=== PATIENT | male | born 1970 | race Caucasian/White ===

== ENCOUNTER → 2017-10-31 | Outpatient (CLI) | payer MEDICARE, OTHER ==
--- NOTE | 2017-10-31 08:58 | CT ---
EXAMINATION TYPE: CT brain wo con DATE OF EXAM: 10/31/2017 COMPARISON: NONE INDICATION: Syncope, Seizures DLP: 1917.3 mGycm, Automated exposure control for dose reduction was used. CONTRAST: None CT of the brain is performed utilizing 3 mm thick sections through the posterior fossa and 3 mm thick sections through the remaining calvarium. Study is performed within 24 hours of arrival to the hosp [facility]. There is some beam hardening artifact through the posterior fossa. No abnormal hyperdensity is present to suggest an acute intracranial hemorrhage. No mass lesion is evident. Physiologic basal ganglion calcification is present. No acute infarcts are evident. Some mild periventricular white matter ischemic type changes are not e xcluded. Ventricles and sulci are appropriate for the patient age. Paranasal sinuses and mastoid air cells within the [id number] are clear. IMPRESSIONS: 1. There may be some minimal periventricular white matter ischemic type changes present. 2. No acute intracranial process.
--- NOTE | 2017-10-31 09:36 | US ---
EXAMINATION TYPE: US carotid duplex BILAT DATE OF EXAM: 10/31/2017 COMPARISON: NONE CLINICAL HISTORY: R55 syncope G40.909 seizures. Syncope Pt mentally challenged (Down's Syndrome), very difficult, limited exam EXAM MEASUREMENTS: RIGHT: Peak Systolic Velocity (PSV) cm/sec ----- Right CCA: 60.3 ----- Right ICA: 26.3 ----- Right ECA: 61.9 ICA/CCA ratio: 0.4 RIGHT: End Diastole cm/sec ----- Right CCA: 5.4 ----- Right ICA: 11.3 ----- Right ECA: 7.8 LEFT: Peak Systolic Velocity (PSV) cm/sec ----- Left CCA: 64.7 ----- Left ICA: 32.7 ----- Left ECA: 57.0 ICA/CCA ratio: 0.5 LEFT: End Diastole cm/sec ----- Left CCA: 11.8 ----- Left ICA: 12.7 ----- Left ECA: 5.4 VERTEBRALS (direction of flow): Right Vertebral: Unable to visualize Left Vertebral: Unable to visualize Limited visualization shows no significant stenosis bilaterally, low velocities bilateral ICA's, ly mph nodes visualized left lateral neck IMPRESSION: 1. No sonographic evidence of hemodynamically significant stenosis within either carotid arterial sys tem. 2. Overall diminished peak systolic velocities are suggestive of hypotension or diminished cardiac ou tput. 3. Nonvisualization of the vertebral arteries due to the above limitations.
--- NOTE | 2017-10-31 11:34 | ECHOF ---
Referral Reason:R55 syncope/G40.909 seizures MEASUREMENTS -------- HEIGHT: 152.4 cm WEIGHT: 59.4 kg BP: IVSd: 0.7 cm (0.6 - 1.1) LVIDd: 2.6 cm (3.9 - 5.3) LVPWd: 0.7 cm (0.6 - 1.1) IVSs: 0.9 cm LVIDs: 1.7 cm LVPWs: 1.2 cm Ao Diam: 2.6 cm (2.0 - 3.7) AV Cusp: 1.5 cm (1.5 - 2.6) LA Diam: 2.1 cm (2.7 - 3.8) MV EXCURSION: 19.805 mm (> 18.000) MV EF SLOPE: 123 mm/s (70 - 150) MV E Ryder: 0.64 m/s MV DecT: 219 ms MV A Ryder: 0.63 m/s MV E/A Ratio: 1.02 RAP: 5.00 mmHg RVSP: 9.20 mmHg FINDINGS -------- Sinus rhythm. This was a technically difficult study with suboptimal views. This was a technically difficult stud y with suboptimal apical views. The left ventricular size is normal. Left ventricular wall thickness is normal. Overall left vent ricular systolic function is low-normal with, an EF between 50 - 55 %. The right ventricle is normal in size and function. The left atrium is normal in size. The right atrium is normal in size. The aortic valve is trileaflet, and appears structurally normal. No aortic stenosis or regurgitation. There is trace mitral regurgitation. Trace tricuspid regurgitation present. The right ventricular systolic pressure, as measured by Dopp ler, is 9.20mmHg. Pulmonic valve appears structurally normal. The aortic root, ascending aorta and aortic arch are normal. Normal inferior vena cava with normal inspiratory collapse consistent with estimated right atrial pre ssure of 5 mmHg. The pericardium is normal. CONCLUSIONS -------- 1. Sinus rhythm. 2. This was a technically difficult study with suboptimal views. 3. This was a technically difficult study with suboptimal apical views. 4. The left ventricular size is normal. 5. Left ventricular wall thickness is normal. 6. Overall left ventricular systolic function is low-normal with, an EF between 50 - 55 %. 7. The right ventricle is normal in size and function. 8. The left atrium is normal in size. 9. The right atrium is normal in size. 10. The aortic valve is trileaflet, and appears structurally normal. No aortic stenosis or regurgitat ion. 11. There is trace mitral regurgitation. 12. Trace tricuspid regurgitation present. 13. The right ventricular systolic pressure, as measured by Doppler, is 9.20mmHg. 14. Pulmonic valve appears structurally normal. 15. The aortic root, ascending aorta and aortic arch are normal. 16. Normal inferior vena cava with normal inspiratory collapse consistent with estimated right atrial pressure of 5 mmHg. 17. The pericardium is normal. FOOD SERVICE ATTENDANT: Shena Rajan RDCS
--- NOTE | 2017-10-31 17:20 | EEG ---
ELECTROENCEPHALOGRAM REPORT DATE OF EE10/31/2017 ELECTROENCEPHALOGRAPHIC EXAMINATION REPORT: INDICATION FOR EXAMINATION: This patient is a 47-year-old male with history of Down syndrome and OCD. Patient currently residing in a assisted with episodes of falls and questionable seizure activity. AGE: 47. EEG FINDINGS: A routine 21-channel awake digital EEG recording was accomplished utilizing the 10-20 international system with bipolar and referential montages. The background activity in the most alert resting state consists of a low to medium amplitude, fairly well- developed well-sustained 6-7 Hz activity over the posterior head region. This posterior rhythm attenuates to eye opening. There is a small amount of low amplitude 18-20 Hz beta activity seen maximally over the anterior head regions. Muscle and movement artifact was observed on several occasions during the tracing. Hyperventilation failed to add any additional information to the tracing. No further activation was noted. Photic stimulation at flash frequencies of 2-30 Hz produced a minimal occipital driving response. The main feature of this tracing is the occurrence on several occasions of small bitemporal sharp wave discharges lasting 4-5 seconds in duration. This finding persists throughout the tracing. These small bitemporal sharp waves are bilateral in location. No clinical correlation was seen during these episodes. IMPRESSION: This EEG is abnormal due to the occurrence of small bitemporal sharp wave discharges occurring bilaterally. This finding suggests possibility of a seizure disorder of deep level origin. Clinical correlation is strongly recommended. VETO / TIMMY: [id number] /
== END | disposition home or self-care (01) ==
LOC: RADCTMAIN 07:12
PROVIDERS: ATTEND Family Medicine
DX: R94.01 Abnormal electroencephalogram [EEG] (principal); G40.909 Epilepsy, unspecified, not intractable, without status epilepticus; R55 Syncope and collapse
CPT/HCPCS: 70450; 93306; 93880; 95816

== ENCOUNTER → 2017-12-22 | Outpatient (CLI) | payer MEDICARE, OTHER ==
[2017-12-22 08:44] LABS: Basophils # (A) 0.1 k/uL (0-0.2); Basophils % (A) 1 %; Eosinophils # (A) 0.1 k/uL (0-0.7); Eosinophils % (A) 1 %; HCT 52.5 % (39.0-53.0); HGB 17.3 gm/dL (13.0-17.5); Lymphocytes # (A) 1.1 k/uL (1.0-4.8); Lymphocytes % (A) 16 %; MCH 33.2 pg (25.0-35.0); MCV 100.6 fL (80.0-100.0); Macrocytosis Slight; Mean Platelet Volume 8.5; Monocytes # (A) 0.6 k/uL (0-1.0); Monocytes % (A) 9 %; Neutrophils # (A) 4.9 k/uL (1.3-7.7); Neutrophils % (A) 70 %; Platelet Count 235 k/uL (150-450); RBC 5.22 m/uL (4.30-5.90); RDW 13.4 % (11.5-15.5); WBC 6.9 k/uL (3.8-10.6)
[2017-12-22 09:00] LABS: Valproic Acid (Depakene) 60.7 ug/mL
== END | disposition home or self-care (01) ==
LOC: LABWHC1 08:09
PROVIDERS: ATTEND Psychiatry & Neurology Neurology
DX: G40.909 Epilepsy, unspecified, not intractable, without status epilepticus (principal)
CPT/HCPCS: 36415; 80164; 84450; 84460; 85025

== ENCOUNTER → 2018-10-24 | Outpatient (CLI) | payer MEDICARE, OTHER ==
--- NOTE | 2018-10-24 11:35 | XR ---
EXAMINATION TYPE: XR abdomen 1V DATE OF EXAM: 10/24/2018 Comparison: None Clinical History: 48-year-old male change in bowel habits Findings: No evidence for free intraperitoneal air. Air is seen throughout the colon with moderate stool in th e right side of the abdomen. Prominent gassy small bowel loops in the left side of the abdomen. No ai r-fluid levels. Impression: Gassy small bowel loops in the left side of the abdomen could be transient or could reflect an ileus. Nonobstructive bowel gas pattern. No free air.
== END ==
LOC: RADXRMAIN 09:58
PROVIDERS: ATTEND Family Medicine
DX: R19.4 Change in bowel habit (principal)
CPT/HCPCS: 74018

== ENCOUNTER → 2018-11-01 | Outpatient (CLI) | payer MEDICARE, OTHER ==
[2018-11-01 09:03] LABS: Basophils # (A) 0.1 k/uL (0-0.2); Basophils % (A) 2 %; Eosinophils # (A) 0.1 k/uL (0-0.7); Eosinophils % (A) 1 %; HCT 49.4 % (39.0-53.0); Lymphocytes # (A) 1.2 k/uL (1.0-4.8); Lymphocytes % (A) 31 %; MCH 33.1 pg (25.0-35.0); MCHC 32.4 g/dL (31.0-37.0); MCV 102.2 fL (80.0-100.0); Macrocytosis Slight; Mean Platelet Volume 9.6; Monocytes # (A) 0.4 k/uL (0-1.0); Monocytes % (A) 11 %; Neutrophils # (A) 2.1 k/uL (1.3-7.7); Neutrophils % (A) 53 %; Platelet Count 202 k/uL (150-450); RBC 4.83 m/uL (4.30-5.90); RDW 14.5 % (11.5-15.5)
[2018-11-01 16:50] LABS: Albumin/Globulin Ratio 1.29 (1.60-3.17); Anion Gap 10.6 mmol/L (4.00-12.00); Bilirubin, Conjugated 0.2 mg/dL (0.20-0.40); Bilirubin,Unconjugated 0.4 mg/dL; Carbon Dioxide 28.4 mmol/L (21.6-31.8); Globulin 3.1 g/dL (1.6-3.3); LDL Cholesterol,Calculated 135.4 mg/dL (0.0-131.0); Potassium 4.5 mmol/L (3.5-5.5); Total Bilirubin 0.6 mg/dL (0.2-1.2); Total Protein 7.1 g/dL (6.2-8.2); VLDL Calculation 25.6 mg/dL (5.00-40.00)
[2018-11-01 16:56] LABS: T4, Free (Free Thyroxine) 1.1 ng/dL (0.80-1.80)
[2018-11-01 18:19] LABS: Hemoglobin A1C 4.9 % (4.0-6.0)
== END | disposition home or self-care (01) ==
LOC: LABWHC1 07:53
PROVIDERS: ATTEND Nurse Practitioner Family
DX: Z51.81 Encounter for therapeutic drug level monitoring (principal); Z79.899 Other long term (current) drug therapy
CPT/HCPCS: 36415; 80051; 80061; 80076; 80164; 82947; 83036; 84439; 84443; 85025

== ENCOUNTER → 2018-12-13 | Outpatient (CLI) | payer MEDICARE, OTHER | LOC: LABWHC1 11:03 | PROVIDERS: ATTEND Nurse Practitioner Family | DX: Z51.81 Encounter for therapeutic drug level monitoring (principal); Z79.899 Other long term (current) drug therapy | CPT/HCPCS: 36415; 80164 ==

== ENCOUNTER → 2018-12-31 | Outpatient (CLI) | payer MEDICARE, OTHER ==
--- NOTE | 2018-12-31 10:22 | CT ---
EXAMINATION TYPE: CT abdomen pelvis w con DATE OF EXAM: 12/31/2018 COMPARISON: None HISTORY: Diverticulitis Automated exposure control for dose reduction was used. CONTRAST: CT scan of the abdomen pelvis is performed with IV Contrast, patient injected with 100 mL of Isovue 3 00. FINDINGS- LUNG BASES-diffuse groundglass changes are seen involving the lungs. LIVER/GB- No gross abnormality is appreciated. PANCREAS- No gross abnormality is seen. SPLEEN- No gross abnormality is seen. ADRENALS- No gross abnormality is seen. KIDNEYS/BLADDER- no hydronephrosis nephrolithiasis or renal mass. BOWEL-the bowel gas pattern nonspecific with extensive retained fecal debris. No diagnostic evidence of diverticulitis. Correlate for constipation. Small hiatal hernia. LYMPH NODES- No greater than 1cm abdominal or pelvic lymph nodes areappreciated. OSSEOUS STRUCTURES- No significant abnormality is seen. OTHER- bladder demonstrates circumferential wall thickening correlate for cystitis. Small amount of fluid is seen in the inguinal canal bilaterally. IMPRESSION- 1. Correlate for cystitis. There is circumferential bladder wall thickening. Correlate with urinalysi s. Otherwise consider mucosal lesion. 2. No diagnostic evidence of diverticulitis. Retained fecal debris throughout the colon suggests cons tipation. 3. Groundglass changes involving the lungs are suggestive of alveolitis correlate clinically.
== END ==
LOC: RADCTMAIN 08:39
PROVIDERS: ATTEND Surgery Plastic and Reconstructive Surgery
DX: N32.89 Other specified disorders of bladder (principal); R19.7 Diarrhea, unspecified
CPT/HCPCS: 74177; Q9967

== ENCOUNTER 2019-01-06 07:44 | Emergency (ER) | payer MEDICARE, OTHER ==
[2019-01-06 07:50] VITALS: BP 105/76; PULSE 92; RESP 16; TEMP 97.8
--- NOTE | 2019-01-06 08:17 | ED ---
General Adult HPI - General Chief complaint: Fall Stated complaint: Fall, hit head Time Seen by Provider: 01/06/19 07:45 Source: patient, RN notes reviewed Mode of arrival: wheelchair Limitations: no limitations - History of Present Illness Initial comments: This is a 48-year-old male who is a Down syndrome patient. Patient slipped in the bathroom and fell back and hit his head. Patient is unable to give us any accurate history he says yes to any question asked. According to staff patient did not lose consciousness and does not appear to be acting different however he does have a hematoma in the left temporal region of his scalp. Patient appears to be moving his neck without problem but again he is unable to tell you of his neck hurts. Patient is moving all 4 extremities and according to staff was able to ambulate without problem. - Related Data Home Medications Medication Instructions Recorded Confirmed Cholecalciferol [Vitamin D3] 3 tab PO DAILY 07/05/18 Divalproex ER [Depakote ER] 500 mg PO HS 07/05/18 Fluticasone Nasal [place] [Flonase 1 spray EA NOSTRIL DAILY PRN 07/05/18 Nasal [place]] Hydrocortisone Oint 1 applic TOPICAL DAILY PRN 07/05/18 [Hydrocortisone 2.5% Oint] Levothyroxine Sodium [Synthroid] 75 mcg PO HS 07/05/18 Loratadine 10 mg PO DAILY PRN 07/05/18 QUEtiapine [SEROquel] 50 mg PO 1800 07/05/18 Selenium Sulfate 2.5% Lotion 1 dose TOPICAL DAILY 07/05/18 Triamcinolone 0.1% Ointment 1 applic TOPICAL DAILY PRN 07/05/18 [Kenalog 0.1% Ointment] Venlafaxine HCl [Effexor XR] 150 mg PO DAILY 07/05/18 Venlafaxine HCl [Effexor] 75 mg PO DAILY 07/05/18 clonazePAM [KlonoPIN] 0.5 mg PO BID 07/05/18 clonazePAM [KlonoPIN] 0.5 mg PO BID PRN 07/05/18 Allergies Allergy/AdvReac Type Severity Reaction Status Date / Time furosemide [From Lasix] Allergy Unknown Verified 01/06/19 07:49 latex Allergy Unknown Verified 01/06/19 07:49 Review of Systems ROS Statement: Those systems with pertinent positive or pertinent negative responses have been documented in the HPI. ROS Other: All systems not noted in ROS Statement are negative. Past Medical History Past Medical History: Thyroid Disorder Additional Past Medical History / Comment(s): developmental disability, ocd, dementia, downs syndrome History of Any Multi-Drug Resistant Organisms: None Reported Past Surgical History: No Surgical Hx Reported Additional Past Surgical History / Comment(s): tooth extraction Past Anesthesia/Blood Transfusion Reactions: No Reported Reaction Smoking Status: Never smoker Past Alcohol Use History: None Reported Past Drug Use History: None Reported General Exam - General Exam Comments Initial Comments: GENERAL: Patient is well-developed and well-nourished. Patient is nontoxic and well- hydrated and is in no acute distress. ENT: Neck is soft and supple. No significant lymphadenopathy is noted. Oropharynx is clear. Moist mucous membranes. Neck has full range of motion without eliciting any pain. Patient has a hematoma on the left temporal region measuring about 3 cm in diameter EYES: The sclera were anicteric and conjunctiva were pink and moist. Extraocular movements were intact and pupils were equal round and reactive to light. Eyelids were unremarkable. PULMONARY: Unlabored respirations. Good breath sounds bilaterally. No audible rales rhonchi or wheezing was noted. CARDIOVASCULAR: There is a regular rate and rhythm without any murmurs gallops or rubs. ABDOMEN: Soft and nontender with normal bowel sounds. SKIN: Skin is clear with no lesions or rashes and otherwise unremarkable. NEUROLOGIC: Patient is alert and oriented to his baseline. Cranial nerves II through XII are grossly intact. Motor and sensory are also intact. Normal speech, volume and content. Symmetrical smile. MUSCULOSKELETAL: Normal extremities with adequate strength and full range of motion. No lower extremity swelling or edema. No calf tenderness. LYMPHATICS: No significant lymphadenopathy is noted PSYCHIATRIC: Normal psychiatric evaluation. Limitations: no limitations Course Vital Signs 01/06/19 07:46 Temperature 97.8 F Pulse Rate 92 Respiratory 16 Rate Blood Pressure 105/76 O2 Sat by Pulse 97 Oximetry Medical Decision Making - Medical Decision Making CT of the brain and C-spine showed no acute abnormality. Patient is acting at his baseline according to staff. Disposition Clinical Impression: Scalp hematoma Disposition: HOME SELF-CARE Condition: Good Instructions (If sedation given, give patient instructions): Hematoma (ED), How to Use and Care for Your PEG Tube (ED), Head Injury (ED) Is patient prescribed a controlled substance at d/c from ED?: No Referrals: Moustapha Madrid DO [Primary Care Provider] - 1-2 days Time of Disposition: 08:58
--- NOTE | 2019-01-06 08:36 | CT ---
EXAMINATION TYPE: CT brain silvia kidd DATE OF EXAM: 01/06/2019 COMPARISON: NONE HISTORY: Fall, Hit head CT DLP: 1572 mGycm Automated exposure control for dose reduction was used. TECHNIQUE: CT scan of the head and cervical spine are performed without contrast. FINDINGS: BRAIN: Central structures are midline. There is no evidence of hydrocephalus. There is physiologic ca lcification of the basal ganglia. There is no mass effect, midline shift or intracranial blood. Visualized portions of the paranasal sinuses and mastoids are clear. The bony calvarium is intact. IMPRESSION: NO ACUTE INTRACRANIAL ABNORMALITY. CERVICAL SPINE: There is some groundglass opacity in the visualized portions of the lungs. This may r epresent alveolitis, atypical pneumonia or congestive heart failure. Prevertebral soft tissues are ot herwise normal. There is a mild reversal of the normal cervical lordosis. There is a grade 1 antegrade listhesis of C 3 on C4. Alignment is otherwise normal. Atlantoaxial relationships are normal. There is disc space loss and hypertrophic spondylosis, most marked at C4-5 and C5-C6 but also present to lesser extent C6-7. There is uncovertebral joint disease present at these levels. There is facet arthropathy present on the left at C2-3 and bilaterally at C3-4. No definite protrusion is seen. No f ractures are identified. IMPRESSION: 1. NO ACUTE OSSEOUS LESION. 2. DEGENERATIVE CHANGE.
== END 2019-01-06 09:28 | disposition home or self-care (01) ==
LOC: EC 07:44
DX: S00.83XA Contusion of other part of head, initial encounter (principal); E07.9 Disorder of thyroid, unspecified; F42.9 Obsessive-compulsive disorder, unspecified; Z79.890 Hormone replacement therapy; Z79.899 Other long term (current) drug therapy; Z88.8 Allergy status to other drugs, medicaments and biological substances; Z91.040 Latex allergy status; W01.10XA Fall on same level from slipping, tripping and stumbling with subsequent striking against unspecified object, initial encounter; Y93.F1 Activity, caregiving, bathing; Y92.002 Bathroom of unspecified non-institutional (private) residence as the place of occurrence of the external cause
CPT/HCPCS: 70450; 72125; 99283

== ENCOUNTER 2019-02-15 06:34 | Day surgery (SDC) | payer MEDICARE, OTHER ==
[2019-02-13 11:02] VITALS: BMI 26.9
[~2019-02-15 06:34] MED LIST: KETAMINE 50 MG/ML 10 ML VIAL IM PRN; LACTATED RINGERS 1,000 ML IV SCH
[2019-02-15 07:00] VITALS: TEMP 97.8
--- NOTE | 2019-02-15 07:25 | P.GSHP ---
History of Present Illness H&P Date: 02/15/19 CHIEF COMPLAINT: Colon screen HISTORY OF PRESENT ILLNESS: The patient is a 48-year-old male who presents for colon screen and has special needs. Lower endoscopy was offered for further evaluation and management. PAST MEDICAL HISTORY: Please see list. PAST SURGICAL HISTORY: Please see list. MEDICATIONS: Please see list. ALLERGIES: Please see list. SOCIAL HISTORY: No illicit drug use FAMILY HISTORY: No reports of Crohn disease or ulcerative colitis. REVIEW OF ORGAN SYSTEMS: CONSTITUTIONAL: No reports of fevers or chills. PHYSICAL EXAM: VITAL SIGNS: Stable GENERAL: Well-developed pleasant in no acute distress. HEENT: No scleral icterus. Extraocular movements grossly intact. Moist buccal mucosa. NECK: Supple without lymphadenopathy. CHEST: Unlabored respirations. Equal bilateral excursions. CARDIOVASCULAR: Regular rate and rhythm. Distal 2+ pulses. ABDOMEN: Soft, nontender, nondistended. MUSCULOSKELETAL: No clubbing, cyanosis, or edema. PSYCH: Cognitive device ASSESSMENT: 1. Colon screen. 2. Cognitive impairment PLAN: 1. Recommend proceeding with a lower endoscopy Past Medical History Past Medical History: Dementia, Skin Disorder, Thyroid Disorder Additional Past Medical History / Comment(s): developmental disability, ocd, dementia, downs syndrome, syncope, ezcema,psoriasis History of Any Multi-Drug Resistant Organisms: None Reported Past Surgical History: No Surgical Hx Reported Additional Past Surgical History / Comment(s): tooth extraction, cyst removed from tailbone Past Anesthesia/Blood Transfusion Reactions: No Reported Reaction Smoking Status: Never smoker - Past Family History Mother Family Medical History: Unable to Obtain Medications and Allergies Home Medications Medication Instructions Recorded Confirmed Type Cholecalciferol [Vitamin D3] 3 tab PO DAILY 07/05/18 02/15/19 History Fluticasone Nasal [place] [Flonase 1 spray EA NOSTRIL DAILY PRN 07/05/18 02/15/19 History Nasal [place]] Hydrocortisone Oint 1 applic TOPICAL DAILY PRN 07/05/18 02/15/19 History [Hydrocortisone 2.5% Oint] Levothyroxine Sodium [Synthroid] 75 mcg PO HS 07/05/18 02/15/19 History Loratadine 10 mg PO DAILY PRN 07/05/18 02/15/19 History Selenium Sulfate 2.5% Lotion 1 dose TOPICAL DAILY PRN 07/05/18 02/15/19 History Triamcinolone 0.1% Ointment 1 applic TOPICAL DAILY PRN 07/05/18 02/15/19 History [Kenalog 0.1% Ointment] Venlafaxine HCl [Effexor] 225 mg PO DAILY@0600 07/05/18 02/15/19 History clonazePAM [KlonoPIN] 0.5 mg PO BID 07/05/18 02/15/19 History Divalproex ER [Depakote ER] 1,250 mg PO HS 01/06/19 02/15/19 History Midodrine [ProAmatine] 10 mg PO TID 01/06/19 02/15/19 History QUEtiapine FUMARATE [SEROquel] 25 mg PO HS 01/06/19 02/15/19 History Polyethylene Glycol 3350 [Miralax] 17 gm PO DAILY PRN 02/13/19 02/15/19 History clonazePAM [KlonoPIN] 0.5 mg PO BID PRN 02/13/19 02/15/19 History Allergies Allergy/AdvReac Type Severity Reaction Status Date / Time furosemide [From Lasix] Allergy Unknown Verified 02/15/19 06:50 latex Allergy Unknown Verified 02/15/19 06:50 Surgical - Exam Vital Signs Temp Pulse Resp BP Pulse Ox 97.8 F 89 16 115/83 97 02/15/19 06:58 02/15/19 06:58 02/15/19 06:58 02/15/19 06:58 02/15/19 06:58
[2019-02-15] MEDS ORDERED: PROPOFOL 10 MG/ML 20 ML VIAL IV ONE (07:41)
[2019-02-15] MEDS ORDERED: LIDOCAINE 1% INJ 10MG/ML (20 ML MDV) ONE (07:41)
--- NOTE | 2019-02-15 08:05 | P.PCN ---
Date of Procedure: 02/15/19 Description of Procedure: PREOPERATIVE DIAGNOSIS: Colonoscopy screening. POSTOPERATIVE DIAGNOSIS: Colonoscopy screening. Diverticulosis, scattered. Poor prep OPERATION: Colonoscopy to the ascending colon SURGEON: Karen Mathews MD. ANESTHESIA: MAC. INDICATIONS: The patient is a 48-year-old male who presents for his first colonoscopy screening. Benefits and risks were described and informed consent was obtained. DESCRIPTION OF PROCEDURE: The patient had undergone Suprep. He had been brought into the operating room and laid in the left lateral decubitus position. After adequate intravenous sedation, the rectum was examined with 2% lidocaine jelly. No external hemorrhoids were encountered. The rectal tone was within normal limits. No lesions were palpated in the rectal vault. An Olympus colonoscope was advanced until the ileocecal valve and appendiceal orifice were clearly viewed. The prep was poor prohibiting complete view of all the mucosal folds despite irrigation. Scattered diverticulosis was encountered. No colonic polyps were found. No evidence of focal colitis was found. Retroflexion of the scope demonstrated grade 1 internal hemorrhoids without active bleeding or inflammation. The colon was desufflated. The patient had tolerated the procedure well. Withdrawal time was over 6 minutes. FINDINGS: Aronchick preparation quality scale 3 (1-5) Internal hemorrhoids, grade 1 No external prolapsed hemorrhoids. No arteriovenous malformations. No large adenomatous polyps, however limited secondary to poor prep No focal colitis. RECOMMENDATIONS: Lower endoscopy in 2 years, 2020 Plan - Discharge Summary Discharge Rx Participant: No New Discharge Prescriptions: No Action Venlafaxine HCl [Effexor] 225 mg PO DAILY@0600 Triamcinolone 0.1% Ointment [Kenalog 0.1% Ointment] 1 applic TOPICAL DAILY PRN PRN Reason: Dry Skin Loratadine 10 mg PO DAILY PRN PRN Reason: allergies Levothyroxine Sodium [Synthroid] 75 mcg PO HS Hydrocortisone Oint [Hydrocortisone 2.5% Oint] 1 applic TOPICAL DAILY PRN PRN Reason: Dry Skin Fluticasone Nasal [employer] [Flonase Nasal [employer]] 1 spray EA NOSTRIL DAILY PRN PRN Reason: sinus congestion clonazePAM [KlonoPIN] 0.5 mg PO BID Selenium Sulfate 2.5% Lotion 1 dose TOPICAL DAILY PRN PRN Reason: Dry Skin Cholecalciferol [Vitamin D3] 3 tab PO DAILY Midodrine [ProAmatine] 10 mg PO TID Divalproex ER [Depakote ER] 1,250 mg PO HS QUEtiapine FUMARATE [SEROquel] 25 mg PO HS Polyethylene Glycol 3350 [Miralax] 17 gm PO DAILY PRN PRN Reason: Constipation clonazePAM [KlonoPIN] 0.5 mg PO BID PRN PRN Reason: Agitation Discharge Medication List Cholecalciferol [Vitamin D3] 3 tab PO DAILY 07/05/18 [History] Fluticasone Nasal [employer] [Flonase Nasal [employer]] 1 spray EA NOSTRIL DAILY PRN [History] Hydrocortisone Oint [Hydrocortisone 2.5% Oint] 1 applic TOPICAL DAILY PRN 07/05/18 [History] Levothyroxine Sodium [Synthroid] 75 mcg PO HS 07/05/18 [History] Loratadine 10 mg PO DAILY PRN 07/05/18 [History] Selenium Sulfate 2.5% Lotion 1 dose TOPICAL DAILY PRN 07/05/18 [History] Triamcinolone 0.1% Ointment [Kenalog 0.1% Ointment] 1 applic TOPICAL DAILY PRN 07/05/18 [History] Venlafaxine HCl [Effexor] 225 mg PO DAILY@0600 07/05/18 [History] clonazePAM [KlonoPIN] 0.5 mg PO BID 07/05/18 [History] Divalproex ER [Depakote ER] 1,250 mg PO HS 01/06/19 [History] Midodrine [ProAmatine] 10 mg PO TID 01/06/19 [History] QUEtiapine FUMARATE [SEROquel] 25 mg PO HS 01/06/19 [History] Polyethylene Glycol 3350 [Miralax] 17 gm PO DAILY PRN 02/13/19 [History] clonazePAM [KlonoPIN] 0.5 mg PO BID PRN 02/13/19 [History]
[2019-02-15 09:12] VITALS: BP 108/73; PULSE 71; RESP 17
== END 2019-02-15 10:27 | disposition home or self-care (01) ==
LOC: ORWHC2ENDO 06:34
PROVIDERS: ATTEND Surgery Plastic and Reconstructive Surgery
DX: Z12.11 Encounter for screening for malignant neoplasm of colon (principal); K57.30 Diverticulosis of large intestine without perforation or abscess without bleeding; K64.8 Other hemorrhoids; Q90.9 Down syndrome, unspecified; F42.9 Obsessive-compulsive disorder, unspecified; F03.90 Unspecified dementia, unspecified severity, without behavioral disturbance, psychotic disturbance, mood disturbance, and anxiety; E07.9 Disorder of thyroid, unspecified; L30.9 Dermatitis, unspecified; L40.9 Psoriasis, unspecified; Z79.890 Hormone replacement therapy; Z79.899 Other long term (current) drug therapy; Z88.8 Allergy status to other drugs, medicaments and biological substances; Z91.040 Latex allergy status
CPT/HCPCS: G0121; J2001; J2704; 45378

== ENCOUNTER → 2019-07-04 | Outpatient (CLI) | payer MEDICARE, OTHER ==
[2019-07-04 07:54] LABS: Basophils # (A) 0.1 k/uL (0-0.2); Basophils % (A) 1 %; Eosinophils # (A) 0.1 k/uL (0-0.7); Eosinophils % (A) 2 %; HCT 49.9 % (39.0-53.0); HGB 16.3 gm/dL (13.0-17.5); Lymphocytes # (A) 1.4 k/uL (1.0-4.8); Lymphocytes % (A) 28 %; MCH 34.6 pg (25.0-35.0); MCHC 32.6 g/dL (31.0-37.0); MCV 106.3 fL (80.0-100.0); Macrocytosis Moderate; Mean Platelet Volume 7.4; Monocytes # (A) 0.6 k/uL (0-1.0); Monocytes % (A) 11 %; Neutrophils # (A) 2.8 k/uL (1.3-7.7); Neutrophils % (A) 55 %; Platelet Count 288 k/uL (150-450); RDW 14.6 % (11.5-15.5); WBC 5.2 k/uL (3.8-10.6)
[2019-07-04 14:19] LABS: ALT 43 U/L (10-49); AST 42 U/L (14-35); Albumin/Globulin Ratio 1.14 (1.60-3.17); Alkaline Phosphatase 82 U/L (41-126); Bilirubin, Conjugated <0.20 mg/dL (0.20-0.40); Cholesterol 225 mg/dL (0-200); Globulin 3.6 g/dL (1.6-3.3); Glucose 90 mg/dL (70-110); LDL Cholesterol,Calculated 149.2 mg/dL (0.0-131.0); Total Bilirubin 0.4 mg/dL (0.2-1.2); Total Protein 7.7 g/dL (6.2-8.2)
== END ==
LOC: LABWHC1 07:26
PROVIDERS: ATTEND Nurse Practitioner Family
DX: Z51.81 Encounter for therapeutic drug level monitoring (principal); Z79.899 Other long term (current) drug therapy
CPT/HCPCS: 36415; 80061; 80076; 80164; 82947; 83036; 84439; 84443; 85025

== ENCOUNTER → 2019-08-26 | Outpatient (CLI) | payer MEDICARE, OTHER ==
[2019-08-26 15:44] LABS: Valproic Acid (Depakene) 88.8 ug/mL (50.0-100.0)
[2019-08-26 15:55] LABS: T4, Free (Free Thyroxine) 1.3 ng/dL (0.80-1.80)
== END | disposition home or self-care (01) ==
LOC: LABWHC1 08:51
PROVIDERS: ATTEND Nurse Practitioner Family
DX: Z12.5 Encounter for screening for malignant neoplasm of prostate (principal); Z79.899 Other long term (current) drug therapy
CPT/HCPCS: 36415; 80164; 84153; 84439; 84443

== ENCOUNTER → 2019-09-11 | Outpatient (CLI) | payer MEDICARE, OTHER | END | disposition home or self-care (01) | LOC: LABWHC1 08:49 | PROVIDERS: ATTEND Nurse Practitioner Family | DX: Z51.81 Encounter for therapeutic drug level monitoring (principal); Z79.899 Other long term (current) drug therapy | CPT/HCPCS: 36415; 80164 ==

== ENCOUNTER 2019-12-17 07:44 | Emergency (ER) | payer MEDICARE, OTHER ==
[2019-12-17] MEDS ORDERED: SODIUM CHLORIDE 0.9% 500 ML 500 ML IV ONE (07:47)
[2019-12-17 07:49] VITALS: RESP 18
--- NOTE | 2019-12-17 07:53 | ED ---
General Adult HPI - General Stated complaint: Altered Time Seen by Provider: 12/17/19 07:44 Source: EMS, RN notes reviewed, old records reviewed - History of Present Illness Initial comments: This is a 49-year-old male who resides at a custodial. He has a history of seizures. Patient is unable to give any history. Patient was brought in because he was unresponsive right after having taken a shower and when EMS got there he responded with sternal rub and then slowly came around to his baseline. EMS stated it appeared he was post ictal. Staff did state when he has a seizure he does act like this but this seemed a little longer than normal and they didn't notice any seizure activity. There've been no history of the p atient. He'll follow no history of any fever. Been no difficulty breathing or been no trauma that they know of. At this time no further history is available - Related Data Home Medications Medication Instructions Recorded Confirmed Cholecalciferol [Vitamin D3] 3 tab PO DAILY 07/05/18 02/15/19 Fluticasone Nasal [place] [Flonase 1 spray EA NOSTRIL DAILY PRN 07/05/18 02/15/19 Nasal [place]] Hydrocortisone Oint 1 applic TOPICAL DAILY PRN 07/05/18 02/15/19 [Hydrocortisone 2.5% Oint] Levothyroxine Sodium [Synthroid] 75 mcg PO HS 07/05/18 02/15/19 Loratadine 10 mg PO DAILY PRN 07/05/18 02/15/19 Selenium Sulfate 2.5% Lotion 1 dose TOPICAL DAILY PRN 07/05/18 02/15/19 Triamcinolone 0.1% Ointment 1 applic TOPICAL DAILY PRN 07/05/18 02/15/19 [Kenalog 0.1% Ointment] Venlafaxine HCl [Effexor] 225 mg PO DAILY@0600 07/05/18 02/15/19 clonazePAM [KlonoPIN] 0.5 mg PO BID 07/05/18 02/15/19 Divalproex ER [Depakote ER] 1,250 mg PO HS 01/06/19 02/15/19 Midodrine [ProAmatine] 10 mg PO TID 01/06/19 02/15/19 QUEtiapine FUMARATE [SEROquel] 25 mg PO HS 01/06/19 02/15/19 Polyethylene Glycol 3350 [Miralax] 17 gm PO DAILY PRN 02/13/19 02/15/19 clonazePAM [KlonoPIN] 0.5 mg PO BID PRN 02/13/19 02/15/19 Previous Rx's Medication Instructions Recorded Potassium Bicarb-Citric Acid 25 meq PO ONCE 5 Days #5 tablet.eff 12/17/19 [K-Lyte] Allergies Allergy/AdvReac Type Severity Reaction Status Date / Time furosemide [From Lasix] Allergy Unknown Verified 02/15/19 06:50 latex Allergy Unknown Verified 02/15/19 06:50 memantine [From Namenda] Allergy Unknown Verified 12/17/19 07:54 Review of Systems ROS Statement: Those systems with pertinent positive or pertinent negative responses have been documented in the HPI. ROS Other: All systems not noted in ROS Statement are negative. Past Medical History Past Medical History: Thyroid Disorder Additional Past Medical History / Comment(s): developmental disability, ocd, dementia, downs syndrome History of Any Multi-Drug Resistant Organisms: None Reported Past Surgical History: No Surgical Hx Reported Additional Past Surgical History / Comment(s): tooth extraction Past Anesthesia/Blood Transfusion Reactions: No Reported Reaction Smoking Status: Never smoker - Past Family History Mother Family Medical History: Unable to Obtain General Exam - General Exam Comments Initial Comments: GENERAL: Patient is well-developed and well-nourished. Patient is nontoxic and well- hydrated and is in no acute distress. ENT: Neck is soft and supple. No significant lymphadenopathy is noted. Oropharynx is clear. Moist mucous membranes. Neck has full range of motion without eliciting any pain. EYES: The sclera were anicteric and conjunctiva were pink and moist. Extraocular movements were intact and pupils were equal round and reactive to light. Eyelids were unremarkable. PULMONARY: Unlabored respirations. Good breath sounds bilaterally. No audible rales rhonchi or wheezing was noted. CARDIOVASCULAR: There is a regular rate and rhythm without any murmurs gallops or rubs. ABDOMEN: Soft and nontender with normal bowel sounds. SKIN: Skin is clear with no lesions or rashes and otherwise unremarkable. NEUROLOGIC: Patient is alert patient is not answering questions so I am unable to assess his orientation. Cranial nerves II through XII are grossly intact. Motor appears to be intact. Unable to assess speech because he is not talking to us and I don't have a baseline for what he is able to do baseline verbally MUSCULOSKELETAL: Normal extremities with adequate strength and full range of motion. No lower extremity swelling or edema. No calf tenderness. LYMPHATICS: No significant lymphadenopathy is noted PSYCHIATRIC: Unable to assess the patient Course Vital Signs 12/17/19 12/17/19 07:45 09:43 Temperature 97.6 F Pulse Rate 99 100 Respiratory 18 18 Rate Blood Pressure 138/75 123/80 O2 Sat by Pulse 95 Oximetry Medical Decision Making - Medical Decision Making EKG shows normal sinus rhythm at 90 bpm KS interval 1:30 QRS is 74 QT interval 370 QTC is 452. Patient's EKG shows no ST segment elevation or depression. - Lab Data Result diagrams: 12/17/19 08:10 12/17/19 08:10 Lab Results 12/17/19 12/17/19 12/17/19 Range/Units 07:53 08:10 08:10 WBC 7.0 (3.8-10.6) k/uL RBC 4.17 L (4.30-5.90) m/uL Hgb 14.3 (13.0-17.5) gm/dL Hct 44.3 (39.0-53.0) % MCV 106.3 H (80.0-100.0) fL MCH 34.4 (25.0-35.0) pg MCHC 32.4 (31.0-37.0) g/dL RDW 15.7 H (11.5-15.5) % Plt Count 272 (150-450) k/uL Neutrophils % 67 % Lymphocytes % 21 % Monocytes % 9 % Eosinophils % 1 % Basophils % 1 % Neutrophils # 4.7 (1.3-7.7) k/uL Lymphocytes # 1.5 (1.0-4.8) k/uL Monocytes # 0.6 (0-1.0) k/uL Eosinophils # 0.1 (0-0.7) k/uL Basophils # 0.1 (0-0.2) k/uL Macrocytosis Moderate PT 10.8 (9.0-12.0) sec INR 1.0 (<1.2) APTT 25.0 (22.0-30.0) sec Sodium (137-145) mmol/L Potassium (3.5-5.1) mmol/L Chloride (98-107) mmol/L Carbon Dioxide (22-30) mmol/L Anion Gap mmol/L BUN (9-20) mg/dL Creatinine (0.66-1.25) mg/dL Est GFR (CKD-EPI)AfAm (>60 ml/min/1.73 sqM) Est GFR (CKD-EPI)NonAf (>60 ml/min/1.73 sqM) Glucose (74-99) mg/dL POC Glucose (mg/dL) 85 (75-99) mg/dL POC Glu Client Care Specialist ID Esthela Garcia Calcium (8.4-10.2) mg/dL Total Bilirubin (0.2-1.3) mg/dL AST (17-59) U/L ALT (4-49) U/L Alkaline Phosphatase (38-126) U/L Troponin I (0.000-0.034) ng/mL Total Protein (6.3-8.2) g/dL Albumin (3.5-5.0) g/dL Urine Color Urine Appearance (Clear) Urine pH (5.0-8.0) Ur Specific [place] (1.001-1.035) Urine Protein (Negative) Urine Glucose (UA) (Negative) Urine Ketones (Negative) Urine Blood (Negative) Urine Nitrite (Negative) Urine Bilirubin (Negative) Urine Urobilinogen (<2.0) mg/dL Ur Leukocyte Esterase (Negative) Urine Opiates Screen (NotDetected) Ur Oxycodone Screen (NotDetected) Urine Methadone Screen (NotDetected) Ur Propoxyphene Screen (NotDetected) Ur Barbiturates Screen (NotDetected) U Tricyclic Antidepress (NotDetected) Ur Phencyclidine Scrn (NotDetected) Ur Amphetamines Screen (NotDetected) U Methamphetamines Scrn (NotDetected) U Benzodiazepines Scrn (NotDetected) Urine Cocaine Screen (NotDetected) U Marijuana (THC) Screen (NotDetected) 12/17/19 12/17/19 12/17/19 Range/Units 08:10 08:10 09:40 WBC (3.8-10.6) k/uL RBC (4.30-5.90) m/uL Hgb (13.0-17.5) gm/dL Hct (39.0-53.0) % MCV (80.0-100.0) fL MCH (25.0-35.0) pg MCHC (31.0-37.0) g/dL RDW (11.5-15.5) % Plt Count (150-450) k/uL Neutrophils % % Lymphocytes % % Monocytes % % Eosinophils % % Basophils % % Neutrophils # (1.3-7.7) k/uL Lymphocytes # (1.0-4.8) k/uL Monocytes # (0-1.0) k/uL Eosinophils # (0-0.7) k/uL Basophils # (0-0.2) k/uL Macrocytosis PT (9.0-12.0) sec INR (<1.2) APTT (22.0-30.0) sec Sodium 147 H (137-145) mmol/L Potassium 2.9 L (3.5-5.1) mmol/L Chloride 105 (98-107) mmol/L Carbon Dioxide 35 H (22-30) mmol/L Anion Gap 7 mmol/L BUN 13 (9-20) mg/dL Creatinine 0.70 (0.66-1.25) mg/dL Est GFR (CKD-EPI)AfAm >90 (>60 ml/min/1.73 sqM) Est GFR (CKD-EPI)NonAf >90 (>60 ml/min/1.73 sqM) Glucose 89 (74-99) mg/dL POC Glucose (mg/dL) (75-99) mg/dL POC Glu Client Care Specialist ID Calcium 8.3 L (8.4-10.2) mg/dL Total Bilirubin 0.7 (0.2-1.3) mg/dL AST 29 (17-59) U/L ALT 13 (4-49) U/L Alkaline Phosphatase 100 (38-126) U/L Troponin I <0.012 (0.000-0.034) ng/mL Total Protein 7.6 (6.3-8.2) g/dL Albumin 3.0 L (3.5-5.0) g/dL Urine Color Yellow Urine Appearance Clear (Clear) Urine pH 7.0 (5.0-8.0) Ur Specific [place] 1.016 (1.001-1.035) Urine Protein Trace H (Negative) Urine Glucose (UA) Negative (Negative) Urine Ketones Trace H (Negative) Urine Blood Negative (Negative) Urine Nitrite Negative (Negative) Urine Bilirubin Negative (Negative) Urine Urobilinogen 4.0 (<2.0) mg/dL Ur Leukocyte Esterase Negative (Negative) Urine Opiates Screen Not Detected (NotDetected) Ur Oxycodone Screen Not Detected (NotDetected) Urine Methadone Screen Not Detected (NotDetected) Ur Propoxyphene Screen Not Detected (NotDetected) Ur Barbiturates Screen Not Detected (NotDetected) U Tricyclic Antidepress Not Detected (NotDetected) Ur Phencyclidine Scrn Not Detected (NotDetected) Ur Amphetamines Screen Not Detected (NotDetected) U Methamphetamines Scrn Not Detected (NotDetected) U Benzodiazepines Scrn Not Detected (NotDetected) Urine Cocaine Screen Not Detected (NotDetected) U Marijuana (THC) Screen Not Detected (NotDetected) Disposition Clinical Impression: Hypokalemia, Syncope Disposition: HOME SELF-CARE Instructions (If sedation given, give patient instructions): Hypokalemia (ED), Syncope (ED) Prescriptions: Potassium Bicarb-Citric Acid [K-Lyte] 25 meq PO ONCE 5 Days #5 tablet.eff Is patient prescribed a controlled substance at d/c from ED?: No Referrals: Moustapha Madrid DO [Primary Care Provider] - 1-2 days Time of Disposition: 10:23
[2019-12-17 08:04] LABS: Glucose,Whole Blood 85 mg/dL (75-99)
[2019-12-17 08:21] LABS: Basophils # (A) 0.1 k/uL (0-0.2); Basophils % (A) 1 %; Eosinophils # (A) 0.1 k/uL (0-0.7); Eosinophils % (A) 1 %; HCT 44.3 % (39.0-53.0); HGB 14.3 gm/dL (13.0-17.5); Lymphocytes # (A) 1.5 k/uL (1.0-4.8); Lymphocytes % (A) 21 %; MCH 34.4 pg (25.0-35.0); MCHC 32.4 g/dL (31.0-37.0); MCV 106.3 fL (80.0-100.0); Macrocytosis Moderate; Mean Platelet Volume 10.9; Monocytes # (A) 0.6 k/uL (0-1.0); Monocytes % (A) 9 %; Neutrophils # (A) 4.7 k/uL (1.3-7.7); Neutrophils % (A) 67 %; Platelet Count 272 k/uL (150-450); RBC 4.17 m/uL (4.30-5.90); RDW 15.7 % (11.5-15.5)
[2019-12-17 08:33] LABS: Prothrombin Time 10.8 sec (9.0-12.0)
--- NOTE | 2019-12-17 08:36 | XR ---
EXAMINATION TYPE: XR chest 2V DATE OF EXAM: 12/17/2019 COMPARISON: None INDICATION: Altered mental status fatigue TECHNIQUE: Frontal and lateral views of the chest are obtained. FINDINGS: The heart size is normal. The pulmonary vasculature is normal. Mild bibasilar infiltrates are present, greater at the left base. Correlate for atelectasis and pneum onia. Atypical pneumonia should be considered.. IMPRESSION: 1. Mild bibasilar infiltrates greatest in the left base. Correlate for pneumonia or atypical pneumoni a.
[2019-12-17 08:54] LABS: ALT 13 U/L (4-49); AST 29 U/L (17-59); African American GFR (CKD) >90 (>60 ml/min/1.73 sqM); Alkaline Phosphatase 100 U/L (38-126); Anion Gap 7 mmol/L; Blood Urea Nitrogen 13 mg/dL (9-20); Calcium 8.3 mg/dL (8.4-10.2); Carbon Dioxide 35 mmol/L (22-30); Chloride 105 mmol/L (98-107); Glucose 89 mg/dL (74-99); Non-African American GFR(CKD) >90 (>60 ml/min/1.73 sqM); Potassium 2.9 mmol/L (3.5-5.1); Sodium 147 mmol/L (137-145); Total Bilirubin 0.7 mg/dL (0.2-1.3); Total Protein 7.6 g/dL (6.3-8.2)
[2019-12-17] MEDS ORDERED: POTASSIUM CHLORIDE ER 20 MEQ TAB.ER PO STA (09:04)
[2019-12-17] MEDS ORDERED: Potassium Replacement Protocol 1 EACH MISC MISCELLANE PRN (09:47)
[2019-12-17] MEDS ORDERED: POTASSIUM BICARBONATE/CIT AC 20 MEQ TABLET.EFF PO ONE (09:48)
[2019-12-17 09:57] LABS: Appearance,Urine Clear (Clear); Bilirubin,Urine Negative (Negative); Blood,Urine Negative (Negative); Color,Urine Yellow; Glucose,Urine (UA) Negative (Negative); Ketones,Urine Trace (Negative); Leukocyte Esterase,Urine Negative (Negative); Nitrite,Urine Negative (Negative); Protein,Urine Trace (Negative); Specific Gravity,Urine 1.016 (1.001-1.035)
[2019-12-17] MEDS ORDERED: POTASSIUM BICARBONATE/CIT AC 20 MEQ TABLET.EFF PO SCH (10:00)
[2019-12-17 10:10] LABS: Amphetamine Screen,Urine Not Detected (NotDetected); Barbiturate Screen,Urine Not Detected (NotDetected); Benzodiazepines Screen,Urine Not Detected (NotDetected); Cocaine Screen,Urine Not Detected (NotDetected); Methadone Screen, Urine Not Detected (NotDetected); Opiate Screen,Urine Not Detected (NotDetected); Oxycodone Screen, Urine Not Detected (NotDetected); Phencyclidine Screen,Urine Not Detected (NotDetected); Tricyclic Antidepressant,Urine Not Detected (NotDetected); Urn Cannabinoid Scrn Not Detected (NotDetected)
[2019-12-17 10:46] VITALS: BP 113/92; PULSE 98; TEMP 97.8
[2019-12-17 11:49] LABS: Valproic Acid (Depakene) 116.9 ug/mL
== END 2019-12-17 10:41 | disposition home or self-care (01) ==
LOC: EC 07:44
DX: E87.6 Hypokalemia (principal); R55 Syncope and collapse; E07.9 Disorder of thyroid, unspecified; Z79.890 Hormone replacement therapy; Z79.899 Other long term (current) drug therapy; Z91.040 Latex allergy status; Z88.8 Allergy status to other drugs, medicaments and biological substances
CPT/HCPCS: 36415; 71046; 80053; 80164; 80306; 81003; 84484; 85025; 85610; 85730; 93005; 99285

== ENCOUNTER 2019-12-22 10:37 | Observation (INO) | payer MEDICARE, OTHER ==
[2019-12-22] MEDS ORDERED: SODIUM CHLORIDE 0.9% 500 ML 500 ML IV ONE (11:19)
[2019-12-22 11:48] LABS: Basophils # (A) 0.1 k/uL (0-0.2); Basophils % (A) 1 %; Eosinophils # (A) 0.1 k/uL (0-0.7); Eosinophils % (A) 1 %; HCT 43.7 % (39.0-53.0); HGB 14.1 gm/dL (13.0-17.5); Lymphocytes # (A) 1.6 k/uL (1.0-4.8); Lymphocytes % (A) 24 %; MCH 34.3 pg (25.0-35.0); MCHC 32.3 g/dL (31.0-37.0); MCV 106.1 fL (80.0-100.0); Macrocytosis Moderate; Mean Platelet Volume 10.6; Monocytes # (A) 0.9 k/uL (0-1.0); Monocytes % (A) 13 %; Neutrophils % (A) 59 %; Platelet Count 342 k/uL (150-450); RBC 4.12 m/uL (4.30-5.90); RDW 15.6 % (11.5-15.5); WBC 6.8 k/uL (3.8-10.6)
[2019-12-22 11:56] LABS: ALT 14 U/L (4-49); AST 35 U/L (17-59); Acetaminophen <10.0 ug/mL; African American GFR (CKD) >90 (>60 ml/min/1.73 sqM); Albumin 2.8 g/dL (3.5-5.0); Alkaline Phosphatase 85 U/L (38-126); Anion Gap 6 mmol/L; Blood Urea Nitrogen 16 mg/dL (9-20); Calcium 8.4 mg/dL (8.4-10.2); Carbon Dioxide 33 mmol/L (22-30); Chloride 103 mmol/L (98-107); Glucose 77 mg/dL (74-99); Magnesium 2.5 mg/dL (1.6-2.3); Non-African American GFR(CKD) >90 (>60 ml/min/1.73 sqM); Phosphorus 4.8 mg/dL (2.5-4.5); Potassium 4.2 mmol/L (3.5-5.1); Salicylate <1.0 mg/dL; Sodium 142 mmol/L (137-145); Total Bilirubin 0.5 mg/dL (0.2-1.3); Total Protein 7.1 g/dL (6.3-8.2)
[2019-12-22 12:01] LABS: Valproic Acid (Depakene) 115.7 ug/mL
[2019-12-22] MEDS: SODIUM CHLORIDE 0.9% 1,000 ML IV SCH ×2 (12:07→22:00)
[2019-12-22 12:10] LABS: INR 1.1 (<1.2); Partial Thromboplastin Time 26.5 sec (22.0-30.0); Prothrombin Time 11.4 sec (9.0-12.0)
--- NOTE | 2019-12-22 12:13 | CT ---
EXAMINATION TYPE: CT brain wo con DATE OF EXAM: 12/22/2019 COMPARISON: 01/06/2019 HISTORY: Lethargic and weakness CT DLP: 1158.4 mGycm. Automated Exposure Control for Dose Reduction was Utilized. TECHNIQUE: CT scan of the head is performed without contrast. FINDINGS: There is no acute intracranial hemorrhage, mass effect, or midline shift identified. The ventricles and sulci are symmetrically prominent compatible with age-related volume loss. The globe s are intact and the visualized sinuses are clear. Calcifications are seen within the basal ganglia a nd cerebellar hemispheres, which can be seen and Fahr's disease. IMPRESSION: 1. No acute intracranial hemorrhage, mass effect, or midline shift is seen. 2. Dystrophic supratentorial and infratentorial intraparenchymal calcifications, which can be seen an d Fahr's disease.
--- NOTE | 2019-12-22 12:42 | XR ---
EXAMINATION TYPE: XR chest 2V DATE OF EXAM: 12/22/2019 COMPARISON: 12/17/2019 HISTORY: Weakness TECHNIQUE: Frontal and lateral views of the chest are obtained. FINDINGS: Perihilar linear opacities are seen bilaterally more pronounced than on the prior. Improve d aeration of the left lung base in comparison to the prior. No sizable pleural effusion or pneumotho rax. Stable size of the cardiomediastinal silhouette. IMPRESSION: Perihilar linear opacities are seen that may represent prominent pulmonary vasculature a nd atelectasis given the slightly low lung volumes or perihilar pneumonia.
[2019-12-22 13:29] LABS: Amorphous Sediment,Urine Rare /hpf; Appearance,Urine Clear (Clear); Bilirubin,Urine Negative (Negative); Blood,Urine Negative (Negative); Color,Urine Yellow; Glucose,Urine (UA) Negative (Negative); Ketones,Urine Negative (Negative); Leukocyte Esterase,Urine Moderate (Negative); Mucus,Urine Rare /hpf; Nitrite,Urine Negative (Negative); Protein,Urine Negative (Negative); RBC,Urine <1 /hpf (0-5); Specific Gravity,Urine 1.012 (1.001-1.035); Urobilinogen,Urine <2.0 mg/dL (<2.0); WBC,Urine 18 /hpf (0-5)
[2019-12-22 13:31] LABS: Amphetamine Screen,Urine Not Detected (NotDetected); Benzodiazepines Screen,Urine Not Detected (NotDetected); Cocaine Screen,Urine Not Detected (NotDetected); Opiate Screen,Urine Not Detected (NotDetected); Phencyclidine Screen,Urine Not Detected (NotDetected); Urn Cannabinoid Scrn Not Detected (NotDetected)
[2019-12-22 13:32] LABS: Barbiturate Screen,Urine Not Detected (NotDetected); Methadone Screen, Urine Not Detected (NotDetected); Oxycodone Screen, Urine Not Detected (NotDetected); Tricyclic Antidepressant,Urine Not Detected (NotDetected)
--- NOTE | 2019-12-22 14:17 | ED ---
Weakness HPI - General Source: Caregiver Mode of arrival: wheelchair Limitations: altered mental status, physical limitation <Noris Cesar - Last Filed: 12/22/19 17:43> <Angie Tran - Last Filed: 12/24/19 02:32> - General Chief complaint: Weakness Stated complaint: lethargic Time Seen by Provider: 12/22/19 10:45 - History of Present Illness Initial comments: 49-year-old male with history of Down syndrome 12 and placed presenting for lethargic. Caretakers bedside states for the past 2 days patient has been more lethargic and today was his peak he has been getting valproic acid for treatment of dizziness. Patient normally is somewhat verbal but usually only to the extent of repeating thing you say. Flatwork Finisher states he usually can localize pain (grabbing and groining) and has not noticed these symptoms. She states that patient was seen here recently for similar complaints and was told by patient PCP that this was likely related to the valproic acid as it was borderline toxic levels. Patient has not had fevers, diarrhea, vomiting per staff. She states patient has also not been eating very well. Upon arrival patient does appears lethargic, very dry appearing on gross exam. VS stable, afebrile. (Noris Cesar) - Related Data Home Medications Medication Instructions Recorded Confirmed Fluticasone Nasal [place] [Flonase 2 spray EA NOSTRIL DAILY PRN 07/05/18 12/22/19 Nasal [place]] Hydrocortisone Oint 1 applic TOPICAL DAILY PRN 07/05/18 12/22/19 [Hydrocortisone 2.5% Oint] Levothyroxine Sodium [Synthroid] 75 mcg PO HS@192907/05/18 12/22/19 Loratadine 10 mg PO HS@193 PRN 07/05/18 12/22/19 Selenium Sulfate 2.5% Lotion 1 applic TOPICAL DAILY@0600 PRN 07/05/18 12/22/19 Triamcinolone 0.1% Ointment 1 applic TOPICAL DAILY PRN 07/05/18 12/22/19 [Kenalog 0.1% Ointment] clonazePAM [KlonoPIN] 0.5 mg PO BID@0600,1000 07/05/18 12/22/19 QUEtiapine FUMARATE [SEROquel] 25 mg PO HS@199901/06/19 12/22/19 clonazePAM [KlonoPIN] 0.5 mg PO BID PRN 02/13/19 12/22/19 Fludrocortisone [Florinef] 0.1 mg PO BID@599,199912/22/19 12/22/19 Venlafaxine HCl [Effexor XR] 150 mg PO DAILY@59912/22/19 12/22/19 Previous Rx's Medication Instructions Recorded Cefdinir [Omnicef] 600 mg PO DAILY #7 cap 12/23/19 Divalproex ER [Depakote ER] 1,000 mg PO HS@1929 #60 tab 12/23/19 Divalproex ER [Depakote ER] 250 mg PO HS@1999 #30 tab 12/23/19 Allergies Allergy/AdvReac Type Severity Reaction Status Date / Time furosemide [From Lasix] Allergy Unknown Verified 12/22/19 13:27 latex Allergy Unknown Verified 12/22/19 13:27 memantine [From Namenda] Allergy Unknown Verified 12/22/19 13:27 Review of Systems ROS Other: All systems not noted in ROS Statement are negative. <Noris Cesar - Last Filed: 12/22/19 17:43> ROS Other: All systems not noted in ROS Statement are negative. <Angie Tran - Last Filed: 12/24/19 02:32> ROS Statement: Those systems with pertinent positive or pertinent negative responses have been documented in the HPI. Past Medical History Past Medical History: Thyroid Disorder Additional Past Medical History / Comment(s): developmental disability, ocd, dementia, downs syndrome History of Any Multi-Drug Resistant Organisms: None Reported Past Surgical History: No Surgical Hx Reported Additional Past Surgical History / Comment(s): tooth extraction Past Anesthesia/Blood Transfusion Reactions: No Reported Reaction Past Psychological History: Schizophrenia Smoking Status: Never smoker Past Alcohol Use History: None Reported Past Drug Use History: None Reported - Past Family History Mother Family Medical History: Unable to Obtain <Noris Cesar - Last Filed: 12/22/19 17:43> General Exam Limitations: altered mental status, physical limitation <Noris Cesar - Last Filed: 12/22/19 17:43> - General Exam Comments Initial Comments: General: The patient is easily aroused, but lethargic Eye: Pupils are equal, round and reactive to light, extra-ocular movements are intact. No nystagmus. There is normal conjunctiva bilaterally. No signs of icterus. Ears, nose, mouth and throat: There are very dry mucous membranes and no oral lesions. Neck: The neck is supple, there is no tenderness or JVD. Cardiovascular: There is a regular rate and rhythm. No murmur, rub or gallop is appreciated. Respiratory: Lungs are clear to auscultation, respirations are non-labored, breath sounds are equal. No wheezes, stridor, rales, or rhonchi. Gastrointestinal: Soft, non-distended, non-tender appearing abdomen (no grimacing/moaning with palpation) without masses or organomegaly noted. There is no rebound or guarding present. Musculoskeletal: Normal ROM, no tenderness. Strength 5/5. Sensation intact. Pulses equal bilaterally 2+. Neurological: responsive to touch, us talking, nonverbal,, moving all 4 extremities- no appreciated localized weakness, no facial droop noted, PERRLA. Skin: Skin is warm and dry and no rashes or lesions are noted. (Noris Cesar) Course Vital Signs 12/22/19 12/22/19 12/22/19 10:39 10:41 11:41 Temperature 97.7 F Pulse Rate 79 85 Respiratory 18 20 20 Rate Blood Pressure 108/84 106/88 O2 Sat by Pulse 93 L 96 Oximetry 12/22/19 12/22/19 12/22/19 12:00 13:00 14:51 Temperature Pulse Rate 85 85 Respiratory 20 20 20 Rate Blood Pressure 106/88 125/90 O2 Sat by Pulse 96 96 96 Oximetry 12/22/19 12/22/19 16:00 16:22 Temperature 97.9 F Pulse Rate 98 Respiratory 18 18 Rate Blood Pressure 121/83 O2 Sat by Pulse 96 Oximetry Medical Decision Making - Lab Data Result diagrams: 12/22/19 11:24 12/22/19 11:24 <Noris Cesar - Last Filed: 12/22/19 17:43> - Lab Data Result diagrams: 12/23/19 06:41 12/23/19 06:41 <Angie Tran - Last Filed: 12/24/19 02:32> - Medical Decision Making 49-year-old male presenting today for chief complaint of left thigh which he brought in by caretakers. Patient is on valproic acid. Last levels were borderline toxic. Patient is already about this today which could be the cause the patient's altered mental status. 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 Patient has no focalized neurologic symptoms and appears dry. Poison control contacted recommending ammonia levels. Ammonia WNL. Patient mental status improved with hydration. UA unremarkable. Tox screen unremarkable. Patient will be admitted for IV hydration, neurology consultation in regards to altered mental status. spoke with accepting admitting provder, reviewed labs and was agreeable to care plan/admission (Noris Cesar) I was available for consultation in the emergency department. The history and physical exam were done by the midlevel provider. I was consulted for this patients care. I reviewed the case with the midlevel provider and based on their presentation of the patient, I agree with the assessment, medical decision making and plan of care as documented. Spoke with Dr. Arreola who accepted admission. Patients valproic acid level will be rechecked after holding his medications. Chart was dictated using [employer] dictation software. Attempts were made to correct any dictation errors however some typographical errors may persist. Patient was seen during a national state of emergency due to the Covid-19 pandemic. (Angie Tran) - Lab Data Lab Results 12/22/19 12/22/19 12/22/19 Range/Units 11:24 11:24 11:24 WBC 6.8 (3.8-10.6) k/uL RBC 4.12 L (4.30-5.90) m/uL Hgb 14.1 (13.0-17.5) gm/dL Hct 43.7 (39.0-53.0) % MCV 106.1 H (80.0-100.0) fL MCH 34.3 (25.0-35.0) pg MCHC 32.3 (31.0-37.0) g/dL RDW 15.6 H (11.5-15.5) % Plt Count 342 (150-450) k/uL Neutrophils % 59 % Lymphocytes % 24 % Monocytes % 13 % Eosinophils % 1 % Basophils % 1 % Neutrophils # 4.0 (1.3-7.7) k/uL Lymphocytes # 1.6 (1.0-4.8) k/uL Monocytes # 0.9 (0-1.0) k/uL Eosinophils # 0.1 (0-0.7) k/uL Basophils # 0.1 (0-0.2) k/uL Manual Slide Review Performed Macrocytosis Moderate PT 11.4 (9.0-12.0) sec INR 1.1 (<1.2) APTT 26.5 (22.0-30.0) sec Sodium 142 (137-145) mmol/L Potassium 4.2 (3.5-5.1) mmol/L Chloride 103 (98-107) mmol/L Carbon Dioxide 33 H (22-30) mmol/L Anion Gap 6 mmol/L BUN 16 (9-20) mg/dL Creatinine 0.73 (0.66-1.25) mg/dL Est GFR (CKD-EPI)AfAm >90 (>60 ml/min/1.73 sqM) Est GFR (CKD-EPI)NonAf >90 (>60 ml/min/1.73 sqM) Glucose 77 (74-99) mg/dL Plasma Lactic Acid Bill (0.7-2.0) mmol/L Calcium 8.4 (8.4-10.2) mg/dL Phosphorus 4.8 H (2.5-4.5) mg/dL Magnesium 2.5 H (1.6-2.3) mg/dL Total Bilirubin 0.5 (0.2-1.3) mg/dL AST 35 (17-59) U/L ALT 14 (4-49) U/L Alkaline Phosphatase 85 (38-126) U/L Ammonia (<30) umol/L Troponin I (0.000-0.034) ng/mL NT-Pro-B Natriuret Pep pg/mL Total Protein 7.1 (6.3-8.2) g/dL Albumin 2.8 L (3.5-5.0) g/dL TSH 0.981 (0.465-4.680) mIU/L Urine Color Urine Appearance (Clear) Urine pH (5.0-8.0) Ur Specific [place] (1.001-1.035) Urine Protein (Negative) Urine Glucose (UA) (Negative) Urine Ketones (Negative) Urine Blood (Negative) Urine Nitrite (Negative) Urine Bilirubin (Negative) Urine Urobilinogen (<2.0) mg/dL Ur Leukocyte Esterase (Negative) Urine RBC (0-5) /hpf Urine WBC (0-5) /hpf Amorphous Sediment (None) /hpf Urine Mucus (None) /hpf Salicylates <1.0 mg/dL Urine Opiates Screen (NotDetected) Ur Oxycodone Screen (NotDetected) Urine Methadone Screen (NotDetected) Ur Propoxyphene Screen (NotDetected) Acetaminophen <10.0 ug/mL Ur Barbiturates Screen (NotDetected) Valproic Acid 115.7 ug/mL U Tricyclic Antidepress (NotDetected) Ur Phencyclidine Scrn (NotDetected) Ur Amphetamines Screen (NotDetected) U Methamphetamines Scrn (NotDetected) U Benzodiazepines Scrn (NotDetected) Urine Cocaine Screen (NotDetected) U Marijuana (THC) Screen (NotDetected) 12/22/19 12/22/19 12/22/19 Range/Units 11:24 11:24 11:24 WBC (3.8-10.6) k/uL RBC (4.30-5.90) m/uL Hgb (13.0-17.5) gm/dL Hct (39.0-53.0) % MCV (80.0-100.0) fL MCH (25.0-35.0) pg MCHC (31.0-37.0) g/dL RDW (11.5-15.5) % Plt Count (150-450) k/uL Neutrophils % % Lymphocytes % % Monocytes % % Eosinophils % % Basophils % % Neutrophils # (1.3-7.7) k/uL Lymphocytes # (1.0-4.8) k/uL Monocytes # (0-1.0) k/uL Eosinophils # (0-0.7) k/uL Basophils # (0-0.2) k/uL Manual Slide Review Macrocytosis PT (9.0-12.0) sec INR (<1.2) APTT (22.0-30.0) sec Sodium (137-145) mmol/L Potassium (3.5-5.1) mmol/L Chloride (98-107) mmol/L Carbon Dioxide (22-30) mmol/L Anion Gap mmol/L BUN (9-20) mg/dL Creatinine (0.66-1.25) mg/dL Est GFR (CKD-EPI)AfAm (>60 ml/min/1.73 sqM) Est GFR (CKD-EPI)NonAf (>60 ml/min/1.73 sqM) Glucose (74-99) mg/dL Plasma Lactic Acid Bill 1.8 (0.7-2.0) mmol/L Calcium (8.4-10.2) mg/dL Phosphorus (2.5-4.5) mg/dL Magnesium (1.6-2.3) mg/dL Total Bilirubin (0.2-1.3) mg/dL AST (17-59) U/L ALT (4-49) U/L Alkaline Phosphatase (38-126) U/L Ammonia (<30) umol/L Troponin I <0.012 (0.000-0.034) ng/mL NT-Pro-B Natriuret Pep 145 pg/mL Total Protein (6.3-8.2) g/dL Albumin (3.5-5.0) g/dL TSH (0.465-4.680) mIU/L Urine Color Urine Appearance (Clear) Urine pH (5.0-8.0) Ur Specific [place] (1.001-1.035) Urine Protein (Negative) Urine Glucose (UA) (Negative) Urine Ketones (Negative) Urine Blood (Negative) Urine Nitrite (Negative) Urine Bilirubin (Negative) Urine Urobilinogen (<2.0) mg/dL Ur Leukocyte Esterase (Negative) Urine RBC (0-5) /hpf Urine WBC (0-5) /hpf Amorphous Sediment (None) /hpf Urine Mucus (None) /hpf Salicylates mg/dL Urine Opiates Screen (NotDetected) Ur Oxycodone Screen (NotDetected) Urine Methadone Screen (NotDetected) Ur Propoxyphene Screen (NotDetected) Acetaminophen ug/mL Ur Barbiturates Screen (NotDetected) Valproic Acid ug/mL U Tricyclic Antidepress (NotDetected) Ur Phencyclidine Scrn (NotDetected) Ur Amphetamines Screen (NotDetected) U Methamphetamines Scrn (NotDetected) U Benzodiazepines Scrn (NotDetected) Urine Cocaine Screen (NotDetected) U Marijuana (THC) Screen (NotDetected) 12/22/19 12/22/19 Range/Units 13:10 14:50 WBC (3.8-10.6) k/uL RBC (4.30-5.90) m/uL Hgb (13.0-17.5) gm/dL Hct (39.0-53.0) % MCV (80.0-100.0) fL MCH (25.0-35.0) pg MCHC (31.0-37.0) g/dL RDW (11.5-15.5) % Plt Count (150-450) k/uL Neutrophils % % Lymphocytes % % Monocytes % % Eosinophils % % Basophils % % Neutrophils # (1.3-7.7) k/uL Lymphocytes # (1.0-4.8) k/uL Monocytes # (0-1.0) k/uL Eosinophils # (0-0.7) k/uL Basophils # (0-0.2) k/uL Manual Slide Review Macrocytosis PT (9.0-12.0) sec INR (<1.2) APTT (22.0-30.0) sec Sodium (137-145) mmol/L Potassium (3.5-5.1) mmol/L Chloride (98-107) mmol/L Carbon Dioxide (22-30) mmol/L Anion Gap mmol/L BUN (9-20) mg/dL Creatinine (0.66-1.25) mg/dL Est GFR (CKD-EPI)AfAm (>60 ml/min/1.73 sqM) Est GFR (CKD-EPI)NonAf (>60 ml/min/1.73 sqM) Glucose (74-99) mg/dL Plasma Lactic Acid Bill (0.7-2.0) mmol/L Calcium (8.4-10.2) mg/dL Phosphorus (2.5-4.5) mg/dL Magnesium (1.6-2.3) mg/dL Total Bilirubin (0.2-1.3) mg/dL AST (17-59) U/L ALT (4-49) U/L Alkaline Phosphatase (38-126) U/L Ammonia <9 (<30) umol/L Troponin I (0.000-0.034) ng/mL NT-Pro-B Natriuret Pep pg/mL Total Protein (6.3-8.2) g/dL Albumin (3.5-5.0) g/dL TSH (0.465-4.680) mIU/L Urine Color Yellow Urine Appearance Clear (Clear) Urine pH 7.0 (5.0-8.0) Ur Specific [place] 1.012 (1.001-1.035) Urine Protein Negative (Negative) Urine Glucose (UA) Negative (Negative) Urine Ketones Negative (Negative) Urine Blood Negative (Negative) Urine Nitrite Negative (Negative) Urine Bilirubin Negative (Negative) Urine Urobilinogen <2.0 (<2.0) mg/dL Ur Leukocyte Esterase Moderate H (Negative) Urine RBC <1 (0-5) /hpf Urine WBC 18 H (0-5) /hpf Amorphous Sediment Rare H (None) /hpf Urine Mucus Rare H (None) /hpf Salicylates mg/dL Urine Opiates Screen Not Detected (NotDetected) Ur Oxycodone Screen Not Detected (NotDetected) Urine Methadone Screen Not Detected (NotDetected) Ur Propoxyphene Screen Not Detected (NotDetected) Acetaminophen ug/mL Ur Barbiturates Screen Not Detected (NotDetected) Valproic Acid ug/mL U Tricyclic Antidepress Not Detected (NotDetected) Ur Phencyclidine Scrn Not Detected (NotDetected) Ur Amphetamines Screen Not Detected (NotDetected) U Methamphetamines Scrn Not Detected (NotDetected) U Benzodiazepines Scrn Not Detected (NotDetected) Urine Cocaine Screen Not Detected (NotDetected) U Marijuana (THC) Screen Not Detected (NotDetected) Disposition Is patient prescribed a controlled substance at d/c from ED?: No Time of Disposition: 15:35 Decision to Admit Reason: Admit from EC Decision Date: 12/22/19 Decision Time: 15:35 <Noris Cesar - Last Filed: 12/22/19 17:43> <Angie Tran - Last Filed: 12/24/19 02:32> Clinical Impression: Altered mental status, On valproic acid therapy Disposition: ADMITTED IP TO THIS HOSP Condition: Stable
[2019-12-22] MEDS ORDERED: NALOXONE 0.4 MG/ML 1 ML VIAL IV PRN (15:26)
[2019-12-22] MEDS ORDERED: cefTRIAXone IN SWFI 1,000 MG/10 ML SYRINGE IVP STA (15:38)
[2019-12-22] MEDS ORDERED: FLUTICASONE 50MCG/SPRAY NASAL 16GM EA NOSTRIL PRN (20:12)
[2019-12-22] MEDS ORDERED: [UNRECOGNIZED DRUG - OTHER] TOPICAL PRN (20:12)
[2019-12-22] MEDS ORDERED: clonazePAM 0.5 MG TAB PO PRN (20:12)
[2019-12-22] MEDS ORDERED: TRIAMCINOLONE ACET 0.1% OINTMENT 15 GM TUBE TOPICAL PRN ×2 (20:12)
[2019-12-22] MEDS: HEPARIN SODIUM,PORCINE 5,000 UNIT/ML 1 ML VIAL SQ SCH (21:59)
--- NOTE | 2019-12-22 22:01 | P.HPIM ---
History of Present Illness H&P Date: 12/22/19 Chief Complaint: Altered mental status, lethargy, depression and hypothyroidism 49-year-old male one of Dr. [place] patient who is known to have Down syndrome and development delay who has been having significant lethargy and significant change in mental status for the last 2 days found to have similar symptoms to what he developed previously when he had his valproic acid above normal. Patient was evaluated at the emergency apartment continue to have symptoms claim not to be safe to be discharged valproic acid level was done center of toxicity was contacted as well and no anti-.can be done for valproic acid but need to continue hydration and watch patient hemodynamically and neurologically to make sure is negative of any seizure activity. Patient was admitted to the hospital for the above problem. Review of Systems CONSTITUTIONAL: Well-developed no acute respiratory distress. Positive lethargy and fatigue EYES: No icterus sclerae, no conjunctivitis. EARS, NOSE, MOUTH, THROAT, and FACE: No sore throat, lymphadenopathy, carotid bruits or deformity. RESPIRATORY: Positive shortness of breath mild cough. CARDIOVASCULAR: No CP, Palpitation, PND, Orthopnea, or angina. GASTROINTESTINAL: No Abd pain, Nausea or vomiting, no Diarrhea or constipation, No GI Bleed, no distention or masses, mild constipation. GENITOURINARY: Mild incontinence. INTEGUMENT/BREAST: Negative for any muscular injury with mild osteoarthritis.. HEMATOLOGIC/LYMPHATIC: Negative for bleed or purpura. MUSCULOSKELTAL: Negative for Myalgia or arthralgia. NEURLOGICAL: No LOC, Sz or syncope, blurred vision dizziness or abnormality. Significant altered mental status with lethargy and confusion. BEHAVIORAL/PSYCH: Negative. ENDOCRINE: Negative. Past Medical History Past Medical History: Thyroid Disorder Additional Past Medical History / Comment(s): developmental disability, ocd, dementia, downs syndrome History of Any Multi-Drug Resistant Organisms: None Reported Past Surgical History: No Surgical Hx Reported Additional Past Surgical History / Comment(s): tooth extraction Past Anesthesia/Blood Transfusion Reactions: No Reported Reaction Past Psychological History: Schizophrenia Smoking Status: Never smoker Past Alcohol Use History: None Reported Past Drug Use History: None Reported - Past Family History Mother Family Medical History: Unable to Obtain Medications and Allergies Home Medications Medication Instructions Recorded Confirmed Type Fluticasone Nasal [place] [Flonase 2 spray EA NOSTRIL DAILY PRN 07/05/18 12/22/19 History Nasal [place]] Hydrocortisone Oint 1 applic TOPICAL DAILY PRN 07/05/18 12/22/19 History [Hydrocortisone 2.5% Oint] Levothyroxine Sodium [Synthroid] 75 mcg PO HS@192907/05/18 12/22/19 History Loratadine 10 mg PO HS@1929 PRN 07/05/18 12/22/19 History Selenium Sulfate 2.5% Lotion 1 applic TOPICAL DAILY@0600 PRN 07/05/18 12/22/19 History Triamcinolone 0.1% Ointment 1 applic TOPICAL DAILY PRN 07/05/18 12/22/19 History [Kenalog 0.1% Ointment] clonazePAM [KlonoPIN] 0.5 mg PO BID@0600,1000 07/05/18 12/22/19 History Divalproex ER [Depakote ER] 250 mg PO HS@199901/06/19 12/22/19 History QUEtiapine FUMARATE [SEROquel] 25 mg PO HS@199901/06/19 12/22/19 History clonazePAM [KlonoPIN] 0.5 mg PO BID PRN 02/13/19 12/22/19 History Divalproex ER [Depakote ER] 1,500 mg PO HS@192912/22/19 12/22/19 History Fludrocortisone [Florinef] 0.1 mg PO BID@06,199912/22/19 12/22/19 History Venlafaxine HCl [Effexor XR] 150 mg PO DAILY@0600 12/22/19 12/22/19 History Allergies Allergy/AdvReac Type Severity Reaction Status Date / Time furosemide [From Lasix] Allergy Unknown Verified 12/22/19 13:27 latex Allergy Unknown Verified 12/22/19 13:27 memantine [From Namenda] Allergy Unknown Verified 12/22/19 13:27 Physical Exam Vitals: Vital Signs Temp Pulse Pulse Resp BP BP Pulse Ox 12/22/19 18:45 91 16 84/51 94 L 12/22/19 17:46 98.7 F 98 16 96 12/22/19 16:22 97.9 F 98 18 121/83 96 12/22/19 16:00 18 12/22/19 14:51 20 96 12/22/19 13:00 85 20 125/90 96 12/22/19 12:00 85 20 106/88 96 12/22/19 11:41 85 20 106/88 96 12/22/19 10:41 20 12/22/19 10:39 97.7 F 79 18 108/84 93 L Intake and Output 12/22/19 12/22/19 12/22/19 06:59 14:59 22:59 Other: Weight 68.039 kg 68.039 kg General Appearance: Alert, cooperative, no distress, appears stated age. Neck HEENT: Supple, no lymphadenopathy, no thyroid enlargement, no carotid bruits. Lungs: Decreased breath some bilaterally fine rhonchi. Chest Wall: Decrease expansion with deep inspiration no tenderness and no deformity was found on exam, no costochondral pain or discomfort. Heart: Regular rate and rhythm, S1, S2 normal, no murmur, rub or gallop. Back: Symmetric, no curvature, ROM normal, no CVA tenderness. Abdomen: Soft, non-tender, bowel sounds active all four quadrants, no masses, no organomegaly. Extremities: Extremities normal, atraumatic, no cyanosis or edema. Pulses: 2+ and symmetric. Skin: Skin color, texture, tugor normal, no rashes or lesions. Neurologic: Alert to tired and too sleepy, cranial nerves II through XII intact, no motor deficit, no abnormal balance or gait. Results CBC & Chem 7: 12/22/19 11:24 12/22/19 11:24 Labs: Abnormal Lab Results - Last 24 Hours (Table) 12/22/19 12/22/19 12/22/19 Range/Units 11:24 11:24 13:10 RBC 4.12 L (4.30-5.90) m/uL MCV 106.1 H (80.0-100.0) fL RDW 15.6 H (11.5-15.5) % Carbon Dioxide 33 H (22-30) mmol/L Phosphorus 4.8 H (2.5-4.5) mg/dL Magnesium 2.5 H (1.6-2.3) mg/dL Albumin 2.8 L (3.5-5.0) g/dL Ur Leukocyte Esterase Moderate H (Negative) Urine WBC 18 H (0-5) /hpf Amorphous Sediment Rare H (None) /hpf Urine Mucus Rare H (None) /hpf Microbiology - Last 24 Hours (Table) 12/22/19 13:10 Urine Culture - Preliminary Urine,Voided Thrombosis Risk Factor Assmnt - DVT/VTE Prophylaxis DVT/VTE Prophylaxis: Pharmacologic Prophylaxis ordered, Mechanical Prophylaxis ordered - Choose All That Apply Each Factor Represents 1 point: Age 41-60 years Thrombosis Risk Factor Assessment Total Risk Factor Score: 1 Thrombosis Risk Factor Assessment Level: Low Risk Assessment and Plan Assessment: 1 Alter Mental status: Most likely from valproic acid toxicity keep watching for any secondary such as an infection malnutrition dehydration or other continue hydration and watch symptoms closely. 2 valproic acid toxicity: Patient will stop valproic acid for the next 24 hours and awaiting for the final result. 3 hypothyroidism: Has been on levothyroxine 75 g daily. 4 significant hypotension and adrenal insufficiency: Remain on Florinef doing well with it so far. 5 UTI: UA was positive patient was giving 1 g of Rocephin and now. 6 chronic ALLERGY: Remain on Flonase and loratadine. 7 chronic depression and behavioral problem has been on Effexor or Seroquel and current. Still on Clonopin at nighttime. 8 restless leg syndrome: Continue Klonopin 0.5 g twice a day. 9 chronic dermatitis: Has been on hydrocortisone cream as needed. 10 GI prophylaxis: Patient will be on Pepcid. 11 DVT prophylaxis: Heparin subcutaneous will be use. CODE STATUS: Full code. Admit patient to inpatient for 1-2 nights.
[2019-12-23] MEDS: clonazePAM 0.5 MG TAB PO SCH ×2 (04:50→10:32)
[2019-12-23] MEDS ORDERED: VENLAFAXINE HCL ER 150 MG CAP PO SCH (06:00)
[2019-12-23] MEDS ORDERED: FLUDROCORTISONE 0.1 MG TAB PO SCH (06:00)
[2019-12-23 07:34] LABS: Basophils # (A) 0.1 k/uL (0-0.2); Basophils % (A) 1 %; Eosinophils # (A) 0.1 k/uL (0-0.7); Eosinophils % (A) 1 %; HCT 46.1 % (39.0-53.0); HGB 15.4 gm/dL (13.0-17.5); Lymphocytes # (A) 1.6 k/uL (1.0-4.8); Lymphocytes % (A) 22 %; MCHC 33.3 g/dL (31.0-37.0); MCV 107.9 fL (80.0-100.0); Macrocytosis Marked; Mean Platelet Volume 11.5; Monocytes # (A) 0.8 k/uL (0-1.0); Monocytes % (A) 11 %; Neutrophils # (A) 4.7 k/uL (1.3-7.7); Neutrophils % (A) 65 %; Platelet Count 277 k/uL (150-450); RBC 4.28 m/uL (4.30-5.90); RDW 15.9 % (11.5-15.5); WBC 7.3 k/uL (3.8-10.6)
[2019-12-23 07:57] LABS: ALT 14 U/L (4-49); AST 37 U/L (17-59); African American GFR (CKD) >90 (>60 ml/min/1.73 sqM); Albumin 2.7 g/dL (3.5-5.0); Alkaline Phosphatase 98 U/L (38-126); Anion Gap 10 mmol/L; Blood Urea Nitrogen 14 mg/dL (9-20); Carbon Dioxide 25 mmol/L (22-30); Chloride 106 mmol/L (98-107); Glucose 72 mg/dL (74-99); Non-African American GFR(CKD) >90 (>60 ml/min/1.73 sqM); Potassium 3.6 mmol/L (3.5-5.1); Sodium 141 mmol/L (137-145); Total Bilirubin 0.4 mg/dL (0.2-1.3); Total Protein 7.2 g/dL (6.3-8.2)
[2019-12-23] MEDS: HEPARIN SODIUM,PORCINE 5,000 UNIT/ML 1 ML VIAL SQ SCH (08:25)
[2019-12-23] MEDS ORDERED: FAMOTIDINE 20 MG TAB PO SCH (09:00)
--- NOTE | 2019-12-23 09:43 | P.PN ---
Subjective Progress Note Date: 12/23/19 Principal diagnosis: Altered mental status, lethargy, depression and hypothyroidism 49-year-old male one of Dr. Madrid patient who is known to have Down syndrome and development delay who has been having significant lethargy and significant change in mental status for the last 2 days found to have similar symptoms to what he developed previously when he had his valproic acid above normal. Patient was evaluated at the emergency apartment continue to have symptoms claim not to be safe to be discharged valproic acid level was done center of toxicity was contacted as well and no anti-.can be done for valproic acid but need to continue hydration and watch patient hemodynamically and neurologically to make sure is negative of any seizure activity. Patient was admitted to the hospital for the above problem. 12/22: The sister is on the bedside he is feeling much better today compared to yesterday, was kept without the Procardia the night, 1 dose of IV antibiotic was giving patient will be switched to oral antibiotic start today and if agreeable by the caregiver and the sister patient be discharged home adjustment on Depakote was made to have him go down to total of 1250 mg at nighttime for now if started having more trouble with his behavioral and 1 increase the dose to increase it to total of 1500 only and advice to make a virtual appointment to see Dr. Madrid soon and if possible to leave a note for the psychiatrist to see if she agree with the current change in medication for now and if possible to do another virtual visit with psych. Objective - Vital Signs Vital signs: Vital Signs Temp 97.7 F 12/23/19 04:00 Pulse 97 12/23/19 04:00 Resp 18 12/23/19 04:00 BP 98/73 12/23/19 04:00 Pulse Ox 94 L 12/23/19 04:00 Intake & Output 12/22/19 12/23/19 12/23/19 18:59 06:59 18:59 Intake Total 300 Balance 300 Weight 68.039 kg Intake: Intake, IV Titration 300 Amount Sodium Chloride 0.9% 1, 300 000 ml @ 75 mls/hr IV . [id number] ANDRES Rx#:[id number] Other: # Voids 3 # Bowel Movements 1 - Exam Review of Systems CONSTITUTIONAL: Well-developed no acute respiratory distress. Positive lethargy and fatigue EYES: No icterus sclerae, no conjunctivitis. EARS, NOSE, MOUTH, THROAT, and FACE: No sore throat, lymphadenopathy, carotid b ruits or deformity. RESPIRATORY: Positive shortness of breath mild cough. CARDIOVASCULAR: No CP, Palpitation, PND, Orthopnea, or angina. GASTROINTESTINAL: No Abd pain, Nausea or vomiting, no Diarrhea or constipation, No GI Bleed, no distention or masses, mild constipation. GENITOURINARY: Mild incontinence. INTEGUMENT/BREAST: Negative for any muscular injury with mild osteoarthritis.. HEMATOLOGIC/LYMPHATIC: Negative for bleed or purpura. MUSCULOSKELTAL: Negative for Myalgia or arthralgia. NEURLOGICAL: No LOC, Sz or syncope, blurred vision dizziness or abnormality. Significant altered mental status with lethargy and confusion. BEHAVIORAL/PSYCH: Negative. ENDOCRINE: Negative. Physical Exam Vitals: General Appearance: Alert, cooperative, no distress, appears stated age. Neck HEENT: Supple, no lymphadenopathy, no thyroid enlargement, no carotid bruits. Lungs: Decreased breath some bilaterally fine rhonchi. Chest Wall: Decrease expansion with deep inspiration no tenderness and no deformity was found on exam, no costochondral pain or discomfort. Heart: Regular rate and rhythm, S1, S2 normal, no murmur, rub or gallop. Back: Symmetric, no curvature, ROM normal, no CVA tenderness. Abdomen: Soft, non-tender, bowel sounds active all four quadrants, no masses, no organomegaly. Extremities: Extremities normal, atraumatic, no cyanosis or edema. Pulses: 2+ and symmetric. Skin: Skin color, texture, tugor normal, no rashes or lesions. Neurologic: Alert to tired and too sleepy, cranial nerves II through XII intact, no motor deficit, no abnormal balance or gait. - Labs CBC & Chem 7: 12/23/19 06:41 12/23/19 06:41 Labs: Abnormal Lab Results - Last 24 Hours (Table) 12/22/19 12/22/19 12/22/19 Range/Units 11:24 11:24 13:10 RBC 4.12 L (4.30-5.90) m/uL MCV 106.1 H (80.0-100.0) fL MCH (25.0-35.0) pg RDW 15.6 H (11.5-15.5) % Macrocytosis Carbon Dioxide 33 H (22-30) mmol/L Glucose (74-99) mg/dL Calcium (8.4-10.2) mg/dL Phosphorus 4.8 H (2.5-4.5) mg/dL Magnesium 2.5 H (1.6-2.3) mg/dL Albumin 2.8 L (3.5-5.0) g/dL Ur Leukocyte Esterase Moderate H (Negative) Urine WBC 18 H (0-5) /hpf Amorphous Sediment Rare H (None) /hpf Urine Mucus Rare H (None) /hpf 12/23/19 12/23/19 Range/Units 06:41 06:41 RBC 4.28 L (4.30-5.90) m/uL MCV 107.9 H (80.0-100.0) fL MCH 36.0 H (25.0-35.0) pg RDW 15.9 H (11.5-15.5) % Macrocytosis Marked A Carbon Dioxide (22-30) mmol/L Glucose 72 L (74-99) mg/dL Calcium 8.0 L (8.4-10.2) mg/dL Phosphorus (2.5-4.5) mg/dL Magnesium (1.6-2.3) mg/dL Albumin 2.7 L (3.5-5.0) g/dL Ur Leukocyte Esterase (Negative) Urine WBC (0-5) /hpf Amorphous Sediment (None) /hpf Urine Mucus (None) /hpf Microbiology - Last 24 Hours (Table) 12/22/19 13:10 Urine Culture - Preliminary Urine,Voided Assessment and Plan Assessment: 1 Alter Mental status: Most likely from valproic acid toxicity keep watching for any secondary such as an infection malnutrition dehydration or other continue hydration and watch symptoms closely. 2 valproic acid toxicity: Depakote was adjusted down to 1250 mg a from now on and if the need to go higher try not to increase it higher than 1500 mg in if possible Request the level sometime in the 2 weeks 3 hypothyroidism: Has been on levothyroxine 75 g daily. 4 significant hypotension and adrenal insufficiency: Remain on Florinef doing well with it so far. 5 UTI: UA was positive patient was giving 1 g of Rocephin was switched to oral Ceftin for total of 7 days. 6 chronic ALLERGY: Remain on Flonase and loratadine. 7 chronic depression and behavioral problem has been on Effexor or Seroquel and current. Still on Clonopin at nighttime. 8 restless leg syndrome: Continue Klonopin 0.5 g twice a day. 9 chronic dermatitis: Has been on hydrocortisone cream as needed. 10 GI prophylaxis: Patient will be on Pepcid. Discharge back to the [place] [facility] today to follow-up with PCP in psychiatry in the next few days and keep an adjustment on the Depakote down 500 mg from its original dose down to 1250 mg a day for now if needed to adjusted higher to 1500 mg only and to repeat the level if possible within next 2 weeks. Also complete treatment for UTI with Ceftin for total of 7 days and repeat another UA in 2 weeks.
[2019-12-23] MEDS ORDERED: CEFDINIR 300 MG CAP PO SCH (09:45)
[2019-12-23 10:00] VITALS: BP 111/66; PULSE 101; RESP 16; TEMP 97.9
[2019-12-23 11:32] LABS: Amylase <30 U/L (30-110)
[2019-12-23 11:38] LABS: Valproic Acid (Depakene) 37.3 ug/mL
--- NOTE | 2019-12-23 11:38 | P.DS ---
Providers Date of admission: 12/22/19 14:51 Attending physician: José Arreola Consults: 12/22/19 15:26 Consult Physician Routine Consulting Provider: Rupali Carlos Consult Reason/Comments: altered mental status Do you want consulting provider notified?: Yes Primary care physician: Moustapha Madrid [facility] Course: Principal diagnosis: Altered mental status, lethargy, depression and hypothyroidism 49-year-old male one of Dr. Madrid patient who is known to have Down syndrome and development delay who has been having significant lethargy and significant change in mental status for the last 2 days found to have similar symptoms to what he developed previously when he had his valproic acid above normal. Patient was evaluated at the emergency apartment continue to have symptoms claim not to be safe to be discharged valproic acid level was done center of toxicity was contacted as well and no anti-.can be done for valproic acid but need to continue hydration and watch patient hemodynamically and neurologically to make sure is negative of any seizure activity. Patient was admitted to the hospital for the above problem. 12/22: The sister is on the bedside he is feeling much better today compared to yesterday, was kept without the Procardia the night, 1 dose of IV antibiotic was giving patient will be switched to oral antibiotic start today and if agreeable by the caregiver and the sister patient be discharged home adjustment on Depakote was made to have him go down to total of 1250 mg at nighttime for now if started having more trouble with his behavioral and 1 increase the dose to increase it to total of 1500 only and advice to make a virtual appointment to see Dr. Madrid soon and if possible to leave a note for the psychiatrist to see if she agree with the current change in medication for now and if possible to do another virtual visit with psych. Objective - Vital Signs Vital signs: Vital Signs Temp 97.7 F 12/23/19 04:00 Pulse 97 12/23/19 04:00 Resp 18 12/23/19 04:00 BP 98/73 12/23/19 04:00 Pulse Ox 94 L 12/23/19 04:00 Intake & Output 12/22/19 12/23/19 12/23/19 18:59 06:59 18:59 Intake Total 300 Balance 300 Weight 68.039 kg Intake: Intake, IV Titration 300 Amount Sodium Chloride 0.9% 1, 300 000 ml @ 75 mls/hr IV . [id number] ANDRES Rx#:[id number] Other: # Voids 3 # Bowel Movements 1 - Exam Review of Systems CONSTITUTIONAL: Well-developed no acute respiratory distress. Positive lethargy and fatigue EYES: No icterus sclerae, no conjunctivitis. EARS, NOSE, MOUTH, THROAT, and FACE: No sore throat, lymphadenopathy, carotid bruits or deformity. RESPIRATORY: Positive shortness of breath mild cough. CARDIOVASCULAR: No CP, Palpitation, PND, Orthopnea, or angina. GASTROINTESTINAL: No Abd pain, Nausea or vomiting, no Diarrhea or constipation, No GI Bleed, no distention or masses, mild constipation. GENITOURINARY: Mild incontinence. INTEGUMENT/BREAST: Negative for any muscular injury with mild osteoarthritis.. HEMATOLOGIC/LYMPHATIC: Negative for bleed or purpura. MUSCULOSKELTAL: Negative for Myalgia or arthralgia. NEURLOGICAL: No LOC, Sz or syncope, blurred vision dizziness or abnormality. Significant altered mental status with lethargy and confusion. BEHAVIORAL/PSYCH: Negative. ENDOCRINE: Negative. Physical Exam Vitals: General Appearance: Alert, cooperative, no distress, appears stated age. Neck HEENT: Supple, no lymphadenopathy, no thyroid enlargement, no carotid bruits. Lungs: Decreased breath some bilaterally fine rhonchi. Chest Wall: Decrease expansion with deep inspiration no tenderness and no deformity was found on exam, no costochondral pain or discomfort. Heart: Regular rate and rhythm, S1, S2 normal, no murmur, rub or gallop. Back: Symmetric, no curvature, ROM normal, no CVA tenderness. Abdomen: Soft, non-tender, bowel sounds active all four quadrants, no masses, no organomegaly. Extremities: Extremities normal, atraumatic, no cyanosis or edema. Pulses: 2+ and symmetric. Skin: Skin color, texture, tugor normal, no rashes or lesions. Neurologic: Alert to tired and too sleepy, cranial nerves II through XII intact, no motor deficit, no abnormal balance or gait. - Labs CBC & Chem 7: 12/23/19 06:41 12/23/19 06:41 Labs: Abnormal Lab Results - Last 24 Hours (Table) 12/22/19 12/22/19 12/22/19 Range/Units 11:24 11:24 13:10 RBC 4.12 L (4.30-5.90) m/uL MCV 106.1 H (80.0-100.0) fL MCH (25.0-35.0) pg RDW 15.6 H (11.5-15.5) % Macrocytosis Carbon Dioxide 33 H (22-30) mmol/L Glucose (74-99) mg/dL Calcium (8.4-10.2) mg/dL Phosphorus 4.8 H (2.5-4.5) mg/dL Magnesium 2.5 H (1.6-2.3) mg/dL Albumin 2.8 L (3.5-5.0) g/dL Ur Leukocyte Esterase Moderate H (Negative) Urine WBC 18 H (0-5) /hpf Amorphous Sediment Rare H (None) /hpf Urine Mucus Rare H (None) /hpf 12/23/19 12/23/19 Range/Units 06:41 06:41 RBC 4.28 L (4.30-5.90) m/uL MCV 107.9 H (80.0-100.0) fL MCH 36.0 H (25.0-35.0) pg RDW 15.9 H (11.5-15.5) % Macrocytosis Marked A Carbon Dioxide (22-30) mmol/L Glucose 72 L (74-99) mg/dL Calcium 8.0 L (8.4-10.2) mg/dL Phosphorus (2.5-4.5) mg/dL Magnesium (1.6-2.3) mg/dL Albumin 2.7 L (3.5-5.0) g/dL Ur Leukocyte Esterase (Negative) Urine WBC (0-5) /hpf Amorphous Sediment (None) /hpf Urine Mucus (None) /hpf Microbiology - Last 24 Hours (Table) 12/22/19 13:10 Urine Culture - Preliminary Urine,Voided Assessment and Plan Assessment: 1 Alter Mental status: Most likely from valproic acid toxicity keep watching for any secondary such as an infection malnutrition dehydration or other continue hydration and watch symptoms closely. 2 valproic acid toxicity: Depakote was adjusted down to 1250 mg a from now on and if the need to go higher try not to increase it higher than 1500 mg in if possible Request the level sometime in the 2 weeks 3 hypothyroidism: Has been on levothyroxine 75 g daily. 4 significant hypotension and adrenal insufficiency: Remain on Florinef doing well with it so far. 5 UTI: UA was positive patient was giving 1 g of Rocephin was switched to oral Ceftin for total of 7 days. 6 chronic ALLERGY: Remain on Flonase and loratadine. 7 chronic depression and behavioral problem has been on Effexor or Seroquel and current. Still on Clonopin at nighttime. 8 restless leg syndrome: Continue Klonopin 0.5 g twice a day. 9 chronic dermatitis: Has been on hydrocortisone cream as needed. 10 GI prophylaxis: Patient will be on Pepcid. [facility] to follow-up with PCP in psychiatry in the next few days and keep an adjustment on the Depakote down 500 mg from its original dose down to 1250 mg a day for now if needed to adjusted higher to 1500 mg only and to repeat the level if possible within next 2 weeks. Also complete treatment for UTI with Ceftin for total of 7 days and repeat another UA in 2 weeks. Patient Condition at Discharge: Stable Plan - Discharge Summary Discharge Rx Participant: No New Discharge Prescriptions: New Cefdinir [Omnicef] 600 mg PO DAILY #7 cap Continue Triamcinolone 0.1% Ointment [Kenalog 0.1% Ointment] 1 applic TOPICAL DAILY PRN PRN Reason: Dry Skin Loratadine 10 mg PO HS@1930 PRN PRN Reason: allergies Levothyroxine Sodium [Synthroid] 75 mcg PO HS@1930 Hydrocortisone Oint [Hydrocortisone 2.5% Oint] 1 applic TOPICAL DAILY PRN PRN Reason: FACE,AXILLA,GROIN Fluticasone Nasal [place] [Flonase Nasal [place]] 2 spray EA NOSTRIL DAILY PRN PRN Reason: Allergy Symptoms clonazePAM [KlonoPIN] 0.5 mg PO BID@0600,1000 Selenium Sulfate 2.5% Lotion 1 applic TOPICAL DAILY@0600 PRN PRN Reason: Dry Skin QUEtiapine FUMARATE [SEROquel] 25 mg PO HS@2000 clonazePAM [KlonoPIN] 0.5 mg PO BID PRN PRN Reason: Agitation Fludrocortisone [Florinef] 0.1 mg PO BID@0600,2000 Venlafaxine HCl [Effexor XR] 150 mg PO DAILY@0600 Divalproex ER [Depakote ER] 1,000 mg PO HS@1929 #60 tab Divalproex ER [Depakote ER] 250 mg PO HS@1999 #30 tab Discontinued Divalproex ER [Depakote ER] 1,500 mg PO HS@1929 Discharge Medication List Fluticasone Nasal [place] [Flonase Nasal [place]] 2 spray EA NOSTRIL DAILY PRN 07/05/18 [History] Hydrocortisone Oint [Hydrocortisone 2.5% Oint] 1 applic TOPICAL DAILY PRN 07/05/18 [History] Levothyroxine Sodium [Synthroid] 75 mcg PO HS@0 07/05/18 [History] Loratadine 10 mg PO HS@1929 PRN 07/05/18 [History] Selenium Sulfate 2.5% Lotion 1 applic TOPICAL DAILY@599 PRN 07/05/18 [History] Triamcinolone 0.1% Ointment [Kenalog 0.1% Ointment] 1 applic TOPICAL DAILY PRN 07/05/18 [History] clonazePAM [KlonoPIN] 0.5 mg PO BID@0600,1000 07/05/18 [History] QUEtiapine FUMARATE [SEROquel] 25 mg PO HS@199901/06/19 [History] clonazePAM [KlonoPIN] 0.5 mg PO BID PRN 02/13/19 [History] Fludrocortisone [Florinef] 0.1 mg PO BID@599,199912/22/19 [History] Venlafaxine HCl [Effexor XR] 150 mg PO DAILY@0600 12/22/19 [History] Cefdinir [Omnicef] 600 mg PO DAILY #7 cap 12/23/19 [Rx] Divalproex ER [Depakote ER] 1,000 mg PO HS@1929 #60 tab 12/23/19 [Rx] Divalproex ER [Depakote ER] 250 mg PO HS@1999 #30 tab 12/23/19 [Rx] Follow up Appointment(s)/Referral(s): Moustapha Madrid DO [Primary Care Provider] - 1-2 days (Office closed Please call to make appointment) Discharge Disposition: HOME SELF-CARE
[2019-12-23] MEDS ORDERED: LEVOTHYROXINE 75 MCG TAB PO SCH (19:30)
[2019-12-23] MEDS ORDERED: LORATADINE 10 MG TAB PO PRN (19:30)
[2019-12-23] MEDS ORDERED: QUEtiapine 25 MG TAB PO SCH (20:00)
== END 2019-12-23 14:50 | disposition home or self-care (01) ==
LOC: EC 10:37 → 4SSUR 14:51
PROVIDERS: ADMIT Internal Medicine Geriatric Medicine; ATTEND Internal Medicine Geriatric Medicine
DX: R41.82 Altered mental status, unspecified (principal); T42.6X5A Adverse effect of other antiepileptic and sedative-hypnotic drugs, initial encounter; R53.83 Other fatigue; N39.0 Urinary tract infection, site not specified; Q90.9 Down syndrome, unspecified; F42.9 Obsessive-compulsive disorder, unspecified; F03.90 Unspecified dementia, unspecified severity, without behavioral disturbance, psychotic disturbance, mood disturbance, and anxiety; F20.9 Schizophrenia, unspecified; E03.9 Hypothyroidism, unspecified; I95.9 Hypotension, unspecified; L30.9 Dermatitis, unspecified; F32.9 Major depressive disorder, single episode, unspecified; G25.81 Restless legs syndrome; E27.40 Unspecified adrenocortical insufficiency; Z79.890 Hormone replacement therapy; Z79.899 Other long term (current) drug therapy; Z88.8 Allergy status to other drugs, medicaments and biological substances; Z91.040 Latex allergy status
CPT/HCPCS: 96361; 96374; 99285; 36415; 93005; 80164 ×2; 80165; 83880; 80053 ×2; 84443; 82140 ×2; 82150; 83605; 83735; 84100; 84484; 85025 ×2; 85610; 85730; 81001; 87040; 80306; 83520; 87086; 87635; 71046; 70450; G0378 ×2; G0480; J0696; 80329

== ENCOUNTER 2019-12-27 09:33 | Emergency (ER) | payer MEDICARE, OTHER ==
[2019-12-27 09:40] VITALS: RESP 16; TEMP 97.4
[2019-12-27] MEDS ORDERED: SODIUM CHLORIDE 0.9% 1,000 ML IV STA ×2 (09:46→10:17)
--- NOTE | 2019-12-27 10:35 | ED ---
General Adult HPI - General Chief complaint: Recheck/Abnormal Lab/Rx Stated complaint: lethargy Time Seen by Provider: 12/27/19 09:40 Source: patient, EMS, RN notes reviewed Mode of arrival: EMS Limitations: language barrier - History of Present Illness Initial comments: This a 49-year-old male presents emergency Department from Dr. Quintero's office for concerns of dehydration, weakness. Patient had recent hospitalization for similar complaints. Patient still to be worse by primary care physician at this time. Patient has had decreased oral intake, appears to be dehydrated, very weak, lethargic. There is complains of the patient has been passing out. Patient also has been complaining of some abdominal pain information is very limited as he has Down syndrome and there is very limited verbal communication. - Related Data Home Medications Medication Instructions Recorded Confirmed Fluticasone Nasal [place] [Flonase 2 spray EA NOSTRIL DAILY PRN 07/05/18 12/22/19 Nasal [place]] Hydrocortisone Oint 1 applic TOPICAL DAILY PRN 07/05/18 12/22/19 [Hydrocortisone 2.5% Oint] Levothyroxine Sodium [Synthroid] 75 mcg PO HS@0 07/05/18 12/22/19 Loratadine 10 mg PO HS@1929 PRN 07/05/18 12/22/19 Selenium Sulfate 2.5% Lotion 1 applic TOPICAL DAILY@0600 PRN 07/05/18 12/22/19 Triamcinolone 0.1% Ointment 1 applic TOPICAL DAILY PRN 07/05/18 12/22/19 [Kenalog 0.1% Ointment] clonazePAM [KlonoPIN] 0.5 mg PO BID@0600,1000 07/05/18 12/22/19 QUEtiapine FUMARATE [SEROquel] 25 mg PO HS@199901/06/19 12/22/19 clonazePAM [KlonoPIN] 0.5 mg PO BID PRN 02/13/19 12/22/19 Fludrocortisone [Florinef] 0.1 mg PO BID@0600,199912/22/19 12/22/19 Venlafaxine HCl [Effexor XR] 150 mg PO DAILY@0600 12/22/19 12/22/19 Previous Rx's Medication Instructions Recorded Cefdinir [Omnicef] 600 mg PO DAILY #7 cap 12/23/19 Divalproex ER [Depakote ER] 1,000 mg PO HS@1930 #60 tab 12/23/19 Divalproex ER [Depakote ER] 250 mg PO HS@2000 #30 tab 12/23/19 clonazePAM [KlonoPIN] 0.5 mg PO DAILY 3 Days #9 tablet 12/27/19 Allergies Allergy/AdvReac Type Severity Reaction Status Date / Time furosemide [From Lasix] Allergy Unknown Verified 12/22/19 13:27 latex Allergy Unknown Verified 12/22/19 13:27 memantine [From Namenda] Allergy Unknown Verified 12/22/19 13:27 Review of Systems ROS Statement: Those systems with pertinent positive or pertinent negative responses have been documented in the HPI. ROS Other: All systems not noted in ROS Statement are negative. Past Medical History Past Medical History: Thyroid Disorder Additional Past Medical History / Comment(s): developmental disability, ocd, dementia, downs syndrome History of Any Multi-Drug Resistant Organisms: None Reported Past Surgical History: No Surgical Hx Reported Additional Past Surgical History / Comment(s): tooth extraction Past Anesthesia/Blood Transfusion Reactions: No Reported Reaction Past Psychological History: Schizophrenia Smoking Status: Never smoker Past Alcohol Use History: None Reported Past Drug Use History: None Reported - Past Family History Mother Family Medical History: Unable to Obtain General Exam Limitations: language barrier General appearance: alert, in no apparent distress, lethargic Head exam: Present: atraumatic, normocephalic, normal inspection Eye exam: Present: normal appearance, PERRL, EOMI. Absent: scleral icterus, conjunctival injection, periorbital swelling ENT exam: Present: mucous membranes dry. Absent: normal exam, normal oropharynx, mucous membranes moist Neck exam: Present: normal inspection. Absent: tenderness, meningismus, lymphadenopathy Respiratory exam: Present: normal lung sounds bilaterally. Absent: respiratory distress, wheezes, rales, rhonchi, stridor Cardiovascular Exam: Present: regular rate, normal rhythm, normal heart sounds. Absent: systolic murmur, diastolic murmur, rubs, gallop, clicks GI/Abdominal exam: Present: soft, tenderness, normal bowel sounds. Absent: distended, guarding, rebound, rigid Neurological exam: Present: alert, CN II-XII intact Skin exam: Present: warm, dry, intact, normal color. Absent: rash Course Vital Signs 12/27/19 09:36 Temperature 97.4 F L Pulse Rate 87 Respiratory 16 Rate Blood Pressure 118/78 O2 Sat by Pulse 98 Oximetry Medical Decision Making - Medical Decision Making 49-year-old male presented for dehydration. Patient was given 2 L of fluids , greatly has improved. Labs were reviewed no stiff abnormality's. CT was obtained as requested by PCP CT shows moderate stool burden, nonspecific retroperitoneal inflammation. I discussed case with Dr. Zelaya on-call vascular surgeon but states this may be early signs of retroperitoneal fibrosis though he has no aneurysm no ureteral disruption less likely to cause his pain at this time. Patient did have a bowel movement which he felt better after. Patient is tolerating oral intake. Caregiver and guardian in the room are concerned about his psychiatric medication such as Seroquel and Klonopin causing severe sedation. Cervical be discharged in the meantime until follow-up to see if symptoms improve, decreased Klonopin to once a day with when necessary doses. Dr. Gerard did also discuss case with Dr. Arreola - Lab Data Result diagrams: 12/27/19 10:45 12/27/19 10:45 Lab Results 12/27/19 12/27/19 12/27/19 Range/Units 10:45 10:45 10:45 WBC 10.3 (3.8-10.6) k/uL RBC 3.65 L (4.30-5.90) m/uL Hgb 13.2 (13.0-17.5) gm/dL Hct 38.6 L (39.0-53.0) % MCV 105.7 H (80.0-100.0) fL MCH 36.1 H (25.0-35.0) pg MCHC 34.1 (31.0-37.0) g/dL RDW 16.0 H (11.5-15.5) % Plt Count 423 (150-450) k/uL Neutrophils % 75 % Lymphocytes % 16 % Monocytes % 7 % Eosinophils % 1 % Basophils % 1 % Neutrophils # 7.7 (1.3-7.7) k/uL Lymphocytes # 1.7 (1.0-4.8) k/uL Monocytes # 0.7 (0-1.0) k/uL Eosinophils # 0.1 (0-0.7) k/uL Basophils # 0.1 (0-0.2) k/uL Macrocytosis Moderate PT 11.9 (9.0-12.0) sec INR 1.2 H (<1.2) APTT 27.2 (22.0-30.0) sec Sodium 133 L (137-145) mmol/L Potassium 4.5 (3.5-5.1) mmol/L Chloride 98 (98-107) mmol/L Carbon Dioxide 30 (22-30) mmol/L Anion Gap 5 mmol/L BUN 10 (9-20) mg/dL Creatinine 0.73 (0.66-1.25) mg/dL Est GFR (CKD-EPI)AfAm >90 (>60 ml/min/1.73 sqM) Est GFR (CKD-EPI)NonAf >90 (>60 ml/min/1.73 sqM) Glucose 80 (74-99) mg/dL Plasma Lactic Acid Bill (0.7-2.0) mmol/L Calcium 8.1 L (8.4-10.2) mg/dL Magnesium 2.2 (1.6-2.3) mg/dL Total Bilirubin 0.4 (0.2-1.3) mg/dL AST 28 (17-59) U/L ALT 14 (4-49) U/L Alkaline Phosphatase 110 (38-126) U/L Troponin I (0.000-0.034) ng/mL C-Reactive Protein (<10.0) mg/L Total Protein 7.2 (6.3-8.2) g/dL Albumin 2.7 L (3.5-5.0) g/dL Lipase (23-300) U/L 12/27/19 12/27/19 12/27/19 Range/Units 10:45 10:45 10:45 WBC (3.8-10.6) k/uL RBC (4.30-5.90) m/uL Hgb (13.0-17.5) gm/dL Hct (39.0-53.0) % MCV (80.0-100.0) fL MCH (25.0-35.0) pg MCHC (31.0-37.0) g/dL RDW (11.5-15.5) % Plt Count (150-450) k/uL Neutrophils % % Lymphocytes % % Monocytes % % Eosinophils % % Basophils % % Neutrophils # (1.3-7.7) k/uL Lymphocytes # (1.0-4.8) k/uL Monocytes # (0-1.0) k/uL Eosinophils # (0-0.7) k/uL Basophils # (0-0.2) k/uL Macrocytosis PT (9.0-12.0) sec INR (<1.2) APTT (22.0-30.0) sec Sodium (137-145) mmol/L Potassium (3.5-5.1) mmol/L Chloride (98-107) mmol/L Carbon Dioxide (22-30) mmol/L Anion Gap mmol/L BUN (9-20) mg/dL Creatinine (0.66-1.25) mg/dL Est GFR (CKD-EPI)AfAm (>60 ml/min/1.73 sqM) Est GFR (CKD-EPI)NonAf (>60 ml/min/1.73 sqM) Glucose (74-99) mg/dL Plasma Lactic Acid Bill 1.3 (0.7-2.0) mmol/L Calcium (8.4-10.2) mg/dL Magnesium (1.6-2.3) mg/dL Total Bilirubin (0.2-1.3) mg/dL AST (17-59) U/L ALT (4-49) U/L Alkaline Phosphatase (38-126) U/L Troponin I <0.012 (0.000-0.034) ng/mL C-Reactive Protein 69.7 H (<10.0) mg/L Total Protein (6.3-8.2) g/dL Albumin (3.5-5.0) g/dL Lipase 94 (23-300) U/L Disposition Clinical Impression: Dehydration, Lethargy Disposition: HOME SELF-CARE Condition: Stable Instructions (If sedation given, give patient instructions): Dehydration (ED) Additional Instructions: Please return to the Emergency Department if symptoms worsen or any other concerns. discontinue Seroquel at nighttime , Klonopin new dose will be once daily@10 am with one when necessary dose Prescriptions: clonazePAM [KlonoPIN] 0.5 mg PO DAILY 3 Days #9 tablet Is patient prescribed a controlled substance at d/c from ED?: Yes When asked, does pt state using other controlled substances?: Yes Referrals: Moustapha Madrid DO [Primary Care Provider] - 1-2 days Time of Disposition: 13:56
--- NOTE | 2019-12-27 10:53 | XR ---
EXAMINATION TYPE: XR chest 2V DATE OF EXAM: 12/27/2019 COMPARISON: 12/22/2019 HISTORY: 49-year-old male with weakness TECHNIQUE: AP and lateral views FINDINGS: Heart normal size. Aorta and pulmonary vasculature are within normal limits. Hazy lower lung densitie s. No pleural effusion. IMPRESSION: Hazy lower lung densities could reflect interstitial pneumonitis or changes relating to mosaic attenu ation from bronchiolitis or small airways disease. Clinically correlate.
--- NOTE | 2019-12-27 10:56 | CT ---
EXAMINATION TYPE: CT brain wo con DATE OF EXAM: 12/27/2019 COMPARISON: 12/22/2019 HISTORY: 49-year-old male Lethargic TECHNIQUE: Examination was done in axial plane without intravenous contrast. Coronal and sagittal r econstructions performed. CT DLP: 1098.4 mGycm Automated exposure control for dose reduction was used. FINDINGS: There is no evidence of acute intracranial hemorrhage, acute ischemic changes, mass, mass-effect, or extra-axial fluid collection. There is no effacement of cerebral sulci or basal subarachnoid cister ns. Mild ventricular prominence is unchanged likely relating to central cerebral atrophy. Redemonstra howard basal ganglionic and cerebellar calcifications. There is no midline shift. Pierson-white matter dis tinction is preserved. Paranasal sinuses and mastoid air cells are well pneumatized. Orbits and globes are intact. IMPRESSION: 1. No acute intracranial abnormality seen. 2. Similar central cerebral atrophy and interparenchymal calcifications which could be idiopathic or could reflect Fahr's disease.
[2019-12-27 11:11] LABS: Basophils # (A) 0.1 k/uL (0-0.2); Basophils % (A) 1 %; Eosinophils # (A) 0.1 k/uL (0-0.7); Eosinophils % (A) 1 %; HCT 38.6 % (39.0-53.0); HGB 13.2 gm/dL (13.0-17.5); Lymphocytes # (A) 1.7 k/uL (1.0-4.8); Lymphocytes % (A) 16 %; MCH 36.1 pg (25.0-35.0); MCHC 34.1 g/dL (31.0-37.0); MCV 105.7 fL (80.0-100.0); Macrocytosis Moderate; Mean Platelet Volume 10.3; Monocytes # (A) 0.7 k/uL (0-1.0); Monocytes % (A) 7 %; Neutrophils # (A) 7.7 k/uL (1.3-7.7); Neutrophils % (A) 75 %; Platelet Count 423 k/uL (150-450); RBC 3.65 m/uL (4.30-5.90); WBC 10.3 k/uL (3.8-10.6)
[2019-12-27 11:19] LABS: INR 1.2 (<1.2); Partial Thromboplastin Time 27.2 sec (22.0-30.0); Prothrombin Time 11.9 sec (9.0-12.0)
[2019-12-27 11:28] LABS: ALT 14 U/L (4-49); AST 28 U/L (17-59); African American GFR (CKD) >90 (>60 ml/min/1.73 sqM); Albumin 2.7 g/dL (3.5-5.0); Alkaline Phosphatase 110 U/L (38-126); Anion Gap 5 mmol/L; Blood Urea Nitrogen 10 mg/dL (9-20); Calcium 8.1 mg/dL (8.4-10.2); Carbon Dioxide 30 mmol/L (22-30); Chloride 98 mmol/L (98-107); Glucose 80 mg/dL (74-99); Magnesium 2.2 mg/dL (1.6-2.3); Non-African American GFR(CKD) >90 (>60 ml/min/1.73 sqM); Potassium 4.5 mmol/L (3.5-5.1); Sodium 133 mmol/L (137-145); Total Bilirubin 0.4 mg/dL (0.2-1.3); Total Protein 7.2 g/dL (6.3-8.2)
--- NOTE | 2019-12-27 11:29 | CT ---
EXAMINATION TYPE: CT abdomen pelvis wo con DATE OF EXAM: 12/27/2019 COMPARISON: 12/31/2018 HISTORY: 49-year-old male Pain CT DLP: 729 mGycm. Automated exposure control for dose reduction was used. TECHNIQUE: Contiguous axial scanning of the abdomen and pelvis without IV contrast. Coronal and sagit travis reconstructions performed. FINDINGS: Heart normal size without pericardial effusion. Hazy lower lung opacities without pleural effusion. There is some circumferential wall thickening of the lower esophagus. Noncontrast appearance of the liver, gallbladder, adrenal glands, right kidney, spleen, and pancreas show no gross abnormality. Punctate 3 mm left lower pole renal calculus. No dilated small bowel, free fluid, or free air. However, there is strandy appearing edema tracking down the retroperitoneum with soft tissue density partially encasing the aorta and IVC. 1.2 cm left periaortic lymph node noted. Additional strandy leonarda ma along the bilateral external iliac chains and along the presacral region. Very redundant sigmoid colon extending up the right upper quadrant. Moderate to large stool within th e right side of the colon. Bladder urine distended with moderate circumferential wall thickening. Multiple pelvic phlebolith. St ool distending the rectum up to 5.3 cm wide. Bones: Stable focus of sclerosis posterior left iliac bone. IMPRESSION: 1. Moderate nonspecific inflammation which seems to be centered along the retroperitoneum with densi ty partially encasing the aorta and IVC and extending down into the pelvis along the presacral region and external iliac chains. Etiology unclear. Consider large vessel vasculitis, early retroperitoneal fibrosis, and exclude etiologies such as pancreatitis. Follow-up recommended. 2. Moderate circumferential bladder wall thickening could represent chronic bladder wall hypertroph y or cystitis. Clinically correlate. 3. Some circumferential wall thickening of the lower esophagus may be seen with esophagitis. Punctat e 3 mm nonobstructive left renal calculus. 4. Large stool burden on the right. Markedly redundant sigmoid colon extending into the right upper quadrant incidentally noted.
[2019-12-27 12:32] LABS: C Reactive Protein 69.7 mg/L (<10.0)
[2019-12-27 14:11] VITALS: BP 141/86; PULSE 86
== END 2019-12-27 14:26 | disposition home or self-care (01) ==
LOC: EC 09:33
DX: E86.0 Dehydration (principal); R53.83 Other fatigue; R10.9 Unspecified abdominal pain; E07.9 Disorder of thyroid, unspecified; F20.9 Schizophrenia, unspecified; Z79.890 Hormone replacement therapy; Z79.899 Other long term (current) drug therapy; Z91.040 Latex allergy status; Z88.8 Allergy status to other drugs, medicaments and biological substances
CPT/HCPCS: 36415; 70450; 71046; 74176; 80053; 83605; 83690; 83735; 84484; 85025; 85610; 85730; 86140; 87040; 93005; 96360; 99285

== ENCOUNTER 2020-01-06 21:57 | Emergency (ER) | payer MEDICARE, OTHER ==
[2020-01-06 22:07] VITALS: RESP 18; TEMP 98.5
[2020-01-06] MEDS ORDERED: DIAZEPAM 5 MG/ML 2 ML INJ IVP STA (22:12)
[2020-01-06] MEDS ORDERED: SODIUM CHLORIDE 0.9% 1,000 ML IV STA (22:12)
[2020-01-06] MEDS ORDERED: levETIRAcetam IV 1,000 MG in SALINE 1 100ML.BAG IVPB STA (22:12)
--- NOTE | 2020-01-06 22:15 | ED ---
Seizure HPI - General Chief Complaint: Seizure Stated Complaint: Seizure Source: EMS, RN notes reviewed, old records reviewed Mode of arrival: EMS Limitations: no limitations - History of Present Illness Initial Comments: This is a 49-year-old male DF for evaluation patient suffers from Down syndrome going to multiple medical medication changes currently under knowledge that this may cause him seizure, also her behavior medications. Patient had 32nd seizure which resolved prior to arrival no recent fevers or head trauma no complaints. Patient is a poor historian history obtained by staff and EMS MD Complaint: seizure -: minutes(s) Description of Episode: loss of consciousness, tonic-clonic movement -: second(s) Witnessed: yes - by bystander Trauma: No Seizure History: other (Patient going to medication changes) Possible Precipitating Event: none Associated Symptoms: denies other symptoms Treatments Prior to Arrival: none - Related Data Home Medications Medication Instructions Recorded Confirmed Fluticasone Nasal [place] [Flonase 2 spray EA NOSTRIL DAILY PRN 07/05/18 12/22/19 Nasal [place]] Hydrocortisone Oint 1 applic TOPICAL DAILY PRN 07/05/18 12/22/19 [Hydrocortisone 2.5% Oint] Levothyroxine Sodium [Synthroid] 75 mcg PO HS@1930 07/05/18 12/22/19 Loratadine 10 mg PO HS@1929 PRN 07/05/18 12/22/19 Selenium Sulfate 2.5% Lotion 1 applic TOPICAL DAILY@0600 PRN 07/05/18 12/22/19 Triamcinolone 0.1% Ointment 1 applic TOPICAL DAILY PRN 07/05/18 12/22/19 [Kenalog 0.1% Ointment] clonazePAM [KlonoPIN] 0.5 mg PO BID@0600,1000 07/05/18 12/22/19 QUEtiapine FUMARATE [SEROquel] 25 mg PO HS@199901/06/19 12/22/19 clonazePAM [KlonoPIN] 0.5 mg PO BID PRN 02/13/19 12/22/19 Fludrocortisone [Florinef] 0.1 mg PO BID@0600,199912/22/19 12/22/19 Venlafaxine HCl [Effexor XR] 150 mg PO DAILY@0612/22/19 12/22/19 Previous Rx's Medication Instructions Recorded Cefdinir [Omnicef] 600 mg PO DAILY #7 cap 12/23/19 Divalproex ER [Depakote ER] 1,000 mg PO HS@1930 #60 tab 12/23/19 Divalproex ER [Depakote ER] 250 mg PO HS@2000 #30 tab 12/23/19 clonazePAM [KlonoPIN] 0.5 mg PO DAILY 3 Days #9 tablet 12/27/19 Allergies Allergy/AdvReac Type Severity Reaction Status Date / Time furosemide [From Lasix] Allergy Unknown Verified 12/22/19 13:27 latex Allergy Unknown Verified 12/22/19 13:27 memantine [From Namenda] Allergy Unknown Verified 12/22/19 13:27 Review of Systems ROS Statement: Those systems with pertinent positive or pertinent negative responses have been documented in the HPI. ROS Other: All systems not noted in ROS Statement are negative. Past Medical History Past Medical History: Thyroid Disorder Additional Past Medical History / Comment(s): developmental disability, ocd, dementia, downs syndrome History of Any Multi-Drug Resistant Organisms: None Reported Past Surgical History: No Surgical Hx Reported Additional Past Surgical History / Comment(s): tooth extraction Past Anesthesia/Blood Transfusion Reactions: No Reported Reaction Past Psychological History: Schizophrenia Smoking Status: Never smoker Past Alcohol Use History: None Reported Past Drug Use History: None Reported - Past Family History Mother Family Medical History: Unable to Obtain General Exam Limitations: no limitations General appearance: alert, in no apparent distress Head exam: Present: atraumatic, normocephalic, normal inspection Eye exam: Present: normal appearance, PERRL, EOMI. Absent: scleral icterus, conjunctival injection, periorbital swelling ENT exam: Present: normal exam, mucous membranes moist Neck exam: Present: normal inspection. Absent: tenderness, meningismus, lymphadenopathy Respiratory exam: Present: normal lung sounds bilaterally. Absent: respiratory distress, wheezes, rales, rhonchi, stridor Cardiovascular Exam: Present: regular rate, normal rhythm, normal heart sounds. Absent: systolic murmur, diastolic murmur, rubs, gallop, clicks GI/Abdominal exam: Present: soft, normal bowel sounds. Absent: distended, tenderness, guarding, rebound, rigid Extremities exam: Present: normal inspection, full ROM, normal capillary refill. Absent: tenderness, pedal edema, joint swelling, calf tenderness Back exam: Present: normal inspection Neurological exam: Present: alert, oriented X3, CN II-XII intact Psychiatric exam: Present: normal affect, normal mood Skin exam: Present: warm, dry, intact, normal color. Absent: rash Course Vital Signs 01/06/20 01/07/20 22:00 00:00 Temperature 98.5 F Pulse Rate 105 H 100 Respiratory 18 18 Rate Blood Pressure 122/96 120/80 O2 Sat by Pulse 99 99 Oximetry - Reevaluation(s) Reevaluation #1: Medical record is reviewed No recurrent seizure here in the ER Medical Decision Making - Medical Decision Making 49 male DF for evaluation presents today for evaluation of new onset seizure, secondary to medication changes. Patient given seizure control here in the ER is without complaint and patient will be discharged back to facility a do not want any other medication adjustments - Lab Data Result diagrams: 01/06/20 22:43 01/06/20 22:43 Lab Results 01/06/20 01/06/20 Range/Units 22:43 22:43 WBC 5.5 (3.8-10.6) k/uL RBC 3.59 L (4.30-5.90) m/uL Hgb 12.8 L (13.0-17.5) gm/dL Hct 39.1 (39.0-53.0) % MCV 108.8 H (80.0-100.0) fL MCH 35.7 H (25.0-35.0) pg MCHC 32.8 (31.0-37.0) g/dL RDW 15.9 H (11.5-15.5) % Plt Count 330 (150-450) k/uL Neutrophils % 53 % Lymphocytes % 31 % Monocytes % 11 % Eosinophils % 1 % Basophils % 1 % Neutrophils # 2.9 (1.3-7.7) k/uL Lymphocytes # 1.7 (1.0-4.8) k/uL Monocytes # 0.6 (0-1.0) k/uL Eosinophils # 0.1 (0-0.7) k/uL Basophils # 0.1 (0-0.2) k/uL Macrocytosis Marked A Sodium 132 L (137-145) mmol/L Potassium 5.0 (3.5-5.1) mmol/L Chloride 102 (98-107) mmol/L Carbon Dioxide 25 (22-30) mmol/L Anion Gap 5 mmol/L BUN 16 (9-20) mg/dL Creatinine 0.82 (0.66-1.25) mg/dL Est GFR (CKD-EPI)AfAm >90 (>60 ml/min/1.73 sqM) Est GFR (CKD-EPI)NonAf >90 (>60 ml/min/1.73 sqM) Glucose 94 (74-99) mg/dL Calcium 8.4 (8.4-10.2) mg/dL Total Bilirubin 0.6 (0.2-1.3) mg/dL AST 52 (17-59) U/L ALT 16 (4-49) U/L Alkaline Phosphatase 126 (38-126) U/L Total Protein 8.4 H (6.3-8.2) g/dL Albumin 3.3 L (3.5-5.0) g/dL Salicylates 1.0 mg/dL Acetaminophen <10.0 ug/mL Serum Alcohol <10 mg/dL - EKG Data -: EKG Interpreted by Me (EKG shows sinus tachycardia 105 KS 1:30 QRS 78 QTc 417) Disposition Clinical Impression: Altered mental status, New onset seizure Narrative: withdrawal seizure Disposition: HOME SELF-CARE Condition: Good Instructions (If sedation given, give patient instructions): Recurrent Seizures in Adults (ED) Is patient prescribed a controlled substance at d/c from ED?: No Referrals: Moustapha Madrid DO [Primary Care Provider] - 1-2 days
[2020-01-06 23:05] LABS: ALT 16 U/L (4-49); AST 52 U/L (17-59); Acetaminophen <10.0 ug/mL; African American GFR (CKD) >90 (>60 ml/min/1.73 sqM); Albumin 3.3 g/dL (3.5-5.0); Alcohol <10 mg/dL; Alkaline Phosphatase 126 U/L (38-126); Anion Gap 5 mmol/L; Blood Urea Nitrogen 16 mg/dL (9-20); Calcium 8.4 mg/dL (8.4-10.2); Carbon Dioxide 25 mmol/L (22-30); Chloride 102 mmol/L (98-107); Glucose 94 mg/dL (74-99); Non-African American GFR(CKD) >90 (>60 ml/min/1.73 sqM); Sodium 132 mmol/L (137-145); Total Bilirubin 0.6 mg/dL (0.2-1.3); Total Protein 8.4 g/dL (6.3-8.2)
[2020-01-06 23:17] LABS: Basophils # (A) 0.1 k/uL (0-0.2); Basophils % (A) 1 %; Eosinophils # (A) 0.1 k/uL (0-0.7); Eosinophils % (A) 1 %; HCT 39.1 % (39.0-53.0); HGB 12.8 gm/dL (13.0-17.5); Lymphocytes # (A) 1.7 k/uL (1.0-4.8); Lymphocytes % (A) 31 %; MCH 35.7 pg (25.0-35.0); MCHC 32.8 g/dL (31.0-37.0); MCV 108.8 fL (80.0-100.0); Macrocytosis Marked; Mean Platelet Volume 12.4; Monocytes # (A) 0.6 k/uL (0-1.0); Monocytes % (A) 11 %; Neutrophils # (A) 2.9 k/uL (1.3-7.7); Neutrophils % (A) 53 %; Platelet Count 330 k/uL (150-450); RBC 3.59 m/uL (4.30-5.90); RDW 15.9 % (11.5-15.5); WBC 5.5 k/uL (3.8-10.6)
[2020-01-07 00:21] VITALS: BP 120/80; PULSE 100
== END 2020-01-07 00:21 | disposition home or self-care (01) ==
LOC: EC 21:57
DX: R56.9 Unspecified convulsions (principal); Q90.9 Down syndrome, unspecified; F20.9 Schizophrenia, unspecified; F81.9 Developmental disorder of scholastic skills, unspecified; F42.9 Obsessive-compulsive disorder, unspecified; E07.9 Disorder of thyroid, unspecified; Z79.899 Other long term (current) drug therapy; Z79.52 Long term (current) use of systemic steroids; Z88.8 Allergy status to other drugs, medicaments and biological substances; Z91.040 Latex allergy status
CPT/HCPCS: 36415; 93005; 80053; 85025; 83520; 99285; G0480 ×2; 80320; 80329

== ENCOUNTER → 2021-08-13 | Outpatient (CLI) | payer MEDICARE, OTHER ==
[2021-08-13 14:54] LABS: HCT 46.7 % (39.6-50.0); MCH 33.2 pg (27.0-32.0); MCHC 32.1 g/dL (32.0-37.0); MCV 103.3 fL (80.0-97.0); Mean Platelet Volume 11.9 fL (9.5-12.2); Platelet Count 275 X 10*3/uL (140-440); RBC 4.52 X 10*6/uL (4.40-5.60); RDW 15.7 % (11.5-14.5); WBC 4.42 X 10*3/uL (4.50-10.00)
[2021-08-13 15:46] LABS: ALT 15 U/L (10-49); AST 22 U/L (14-35); African American GFR (CKD) 115.5 (60.0-200.0); Albumin 3.8 g/dL (3.8-4.9); Albumin/Globulin Ratio 0.97 (1.60-3.17); Alkaline Phosphatase 93 U/L (41-126); BUN/Creat Ratio 15.13 Ratio (12.00-20.00); Blood Urea Nitrogen 12.8 mg/dL (9.0-27.0); Calcium 8.8 mg/dL (8.7-10.3); Carbon Dioxide 27.2 mmol/L (20.0-27.5); Chloride 102 mmol/L (96-109); Chol/HDL Ratio 4.31 Ratio; Globulin 3.9 g/dL (1.6-3.3); Glucose 89 mg/dL (70-110); LDL Cholesterol,Calculated 123.2 mg/dL (0.0-131.0); Non-African American GFR(CKD) 99.7 (60.0-200.0); Potassium 4.1 mmol/L (3.5-5.5); Sodium 139 mmol/L (135-145); Total Protein 7.7 g/dL (6.2-8.2)
== END | disposition home or self-care (01) ==
LOC: LABWHC1 08:30
PROVIDERS: ATTEND Family Medicine
DX: Z00.00 Encounter for general adult medical examination without abnormal findings (principal)
CPT/HCPCS: 36415; 80053; 80061; 82306; 83036; 84153; 84439; 84443; 85027

== ENCOUNTER 2022-05-03 10:24 | Emergency (ER) | payer MEDICARE, OTHER ==
[2022-05-03 10:30] VITALS: BP 119/67; PULSE 95; RESP 16; TEMP 97.8
[2022-05-03] MEDS ORDERED: SODIUM CHLORIDE 0.9% 500 ML 500 ML IV STA (10:39)
--- NOTE | 2022-05-03 10:44 | ED ---
General Adult HPI - General Chief complaint: Urogenital Stated complaint: urogenital Time Seen by Provider: 05/03/22 10:32 Source: patient, RN notes reviewed, old records reviewed, Caregiver Mode of arrival: wheelchair Limitations: language barrier, physical limitation - History of Present Illness Initial comments: 52-year-old developmentally delayed male with Down syndrome and dementia presents to the emergency room with caregiver with complaints of foul-smelling urine, abdominal pain with constipation and possible dehydration. Caregiver states has not had a bowel movement since Monday. She states that he normally holds his stool and has a history of constipation problems. She states his urine smells foul like fish. He is wearing a diaper states sometimes they can get him to urinate on his own on a toileting schedule. Denies any fevers. No nausea vomiting or diarrhea. Patient does have a history of seizure disorder and takes Depakote. -: days(s) (5) Location: abdomen Radiation: non-radiation Associated Symptoms: other (foul smelling urine, constipation, difficulty sleeping) Treatments Prior to Arrival: other (enema ) - Related Data Home Medications Medication Instructions Recorded Confirmed Fluticasone Nasal [place] [Flonase 2 spray EA NOSTRIL DAILY PRN 07/05/18 05/03/22 Nasal [place]] Hydrocortisone Oint 1 applic TOPICAL Q2D PRN 07/05/18 05/03/22 [Hydrocortisone 2.5% Oint] Loratadine 10 mg PO DAILY@0800 PRN 07/05/18 05/03/22 Selenium Sulfate 2.5% Lotion 1 applic TOPICAL DAILY 07/05/18 05/03/22 Triamcinolone 0.1% Ointment 1 applic TOPICAL DAILY 07/05/18 05/03/22 [Kenalog 0.1% Ointment] Venlafaxine HCl [Effexor XR] 150 mg PO DAILY@0800 12/22/19 05/03/22 [place] Lotion 1 applic TOPICAL BID 05/03/22 05/03/22 Chlorhexidine Gluconate [Peridex] 15 ml PO BID@08,199905/03/22 05/03/22 Cholecalciferol [Vitamin D3 (10 30 mcg PO DAILY 05/03/22 05/03/22 Mcg = 400 Iu)] Divalproex ER [Depakote ER] 1,000 mg PO HS@199905/03/22 05/03/22 Levothyroxine Sodium [Synthroid] 100 mcg PO DAILY@0800 05/03/22 05/03/22 Melatonin 5 mg PO HS@199905/03/22 05/03/22 Potassium Chloride [Klor-Con M20] 20 meq PO DAILY@0800 05/03/22 05/03/22 clonazePAM [KlonoPIN] 0.5 mg PO BID PRN 05/03/22 05/03/22 polyethylene glycoL 3350 [Miralax] 17 gm PO DAILY PRN 05/03/22 05/03/22 Previous Rx's Medication Instructions Recorded Magnesium Citrate [Citrate of 0 ml PO ONCE #296 ml 05/03/22 Magnesia] Allergies Allergy/AdvReac Type Severity Reaction Status Date / Time furosemide [From Lasix] Allergy Unknown Verified 05/03/22 13:07 latex Allergy Unknown Verified 05/03/22 13:07 memantine [From Namenda] Allergy Unknown Verified 05/03/22 13:07 Review of Systems ROS Statement: Those systems with pertinent positive or pertinent negative responses have been documented in the HPI. ROS Other: All systems not noted in ROS Statement are negative. Past Medical History Past Medical History: Thyroid Disorder Additional Past Medical History / Comment(s): developmental disability, ocd, dementia, downs syndrome History of Any Multi-Drug Resistant Organisms: None Reported Past Surgical History: No Surgical Hx Reported Additional Past Surgical History / Comment(s): tooth extraction Past Anesthesia/Blood Transfusion Reactions: No Reported Reaction Past Psychological History: Schizophrenia Smoking Status: Never smoker Past Alcohol Use History: None Reported Past Drug Use History: None Reported - Past Family History Mother Family Medical History: Unable to Obtain General Exam Limitations: language barrier, physical limitation General appearance: alert, in no apparent distress Head exam: Present: atraumatic Eye exam: Absent: scleral icterus, conjunctival injection, periorbital swelling, periorbital tenderness ENT exam: Present: mucous membranes dry Neck exam: Absent: tenderness, meningismus Respiratory exam: Present: normal lung sounds bilaterally. Absent: respiratory distress, wheezes, rales, rhonchi, stridor, chest wall tenderness, accessory muscle use Cardiovascular Exam: Present: regular rate GI/Abdominal exam: Present: distended, tenderness (diffusely). Absent: guarding, rebound, rigid Extremities exam: Present: normal capillary refill. Absent: pedal edema Back exam: Present: normal inspection. Absent: tenderness, CVA tenderness (R), CVA tenderness (L), paraspinal tenderness, vertebral tenderness, rash noted Neurological exam: Present: alert Psychiatric exam: Present: normal affect, normal mood Skin exam: Present: warm, dry, normal color. Absent: cyanosis, diaphoretic, petechiae, pallor Course Vital Signs 05/03/22 10:27 Temperature 97.8 F Pulse Rate 95 Respiratory 16 Rate Blood Pressure 119/67 O2 Sat by Pulse 98 Oximetry Medical Decision Making - Medical Decision Making X-ray shows moderate colonic stool burden with mild gaseous distention of the colon in the right upper quadrant. There is no evidence of leukocytosis, hemoglobin and hematocrit stable. Urinalysis shows no evidence of urinary tract infection. Valproic acid therapeutic. Patient was given IV fluid bolus. Patient has not had any vomiting. No fevers. He was given a milk of molasses enema with some results. They were prescribed magnesium citrate to try at home, directed to follow up with primary care doctor this week. They were directed to return to the emergency room with any new or concerning symptoms. Caregiver is agreeable to this plan of care. Case discussed with Dr. Arce. - Lab Data Result diagrams: 05/03/22 11:11 05/03/22 11:11 Lab Results 05/03/22 05/03/22 05/03/22 Range/Units 11:11 11:11 11:11 WBC 6.0 (3.8-10.6) k/uL RBC 4.29 L (4.30-5.90) m/uL Hgb 14.3 (13.0-17.5) gm/dL Hct 43.9 (39.0-53.0) % MCV 102.3 H (80.0-100.0) fL MCH 33.3 (25.0-35.0) pg MCHC 32.5 (31.0-37.0) g/dL RDW 15.4 (11.5-15.5) % Plt Count 264 (150-450) k/uL MPV 10.3 Neutrophils % 60 % Lymphocytes % 25 % Monocytes % 9 % Eosinophils % 2 % Basophils % 1 % Neutrophils # 3.6 (1.3-7.7) k/uL Lymphocytes # 1.5 (1.0-4.8) k/uL Monocytes # 0.5 (0-1.0) k/uL Eosinophils # 0.1 (0-0.7) k/uL Basophils # 0.1 (0-0.2) k/uL Macrocytosis Slight Sodium 141 (137-145) mmol/L Potassium 4.5 (3.5-5.1) mmol/L Chloride 106 (98-107) mmol/L Carbon Dioxide 23 (22-30) mmol/L Anion Gap 12 mmol/L BUN 18 (9-20) mg/dL Creatinine 0.78 (0.66-1.25) mg/dL Est GFR (CKD-EPI)AfAm >90 (>60 ml/min/1.73 sqM) Est GFR (CKD-EPI)NonAf >90 (>60 ml/min/1.73 sqM) Glucose 99 (74-99) mg/dL Lactic Ac Sepsis Rflx Plasma Lactic Acid Bill (0.7-2.0) mmol/L Calcium 8.5 (8.4-10.2) mg/dL Total Bilirubin 0.3 (0.2-1.3) mg/dL AST 31 (17-59) U/L ALT 17 (4-49) U/L Alkaline Phosphatase 83 (38-126) U/L Total Protein 9.0 H (6.3-8.2) g/dL Albumin 3.4 L (3.5-5.0) g/dL Amylase 50 (30-110) U/L Lipase 76 (23-300) U/L Urine Color Yellow Urine Appearance Clear (Clear) Urine pH 6.5 (5.0-8.0) Ur Specific [place] 1.023 (1.001-1.035) Urine Protein Trace H (Negative) Urine Glucose (UA) Negative (Negative) Urine Ketones Trace H (Negative) Urine Blood Negative (Negative) Urine Nitrite Negative (Negative) Urine Bilirubin Negative (Negative) Urine Urobilinogen <2.0 (<2.0) mg/dL Ur Leukocyte Esterase Negative (Negative) Valproic Acid 60.4 ug/mL 05/03/22 05/03/22 Range/Units 11:11 11:40 WBC (3.8-10.6) k/uL RBC (4.30-5.90) m/uL Hgb (13.0-17.5) gm/dL Hct (39.0-53.0) % MCV (80.0-100.0) fL MCH (25.0-35.0) pg MCHC (31.0-37.0) g/dL RDW (11.5-15.5) % Plt Count (150-450) k/uL MPV Neutrophils % % Lymphocytes % % Monocytes % % Eosinophils % % Basophils % % Neutrophils # (1.3-7.7) k/uL Lymphocytes # (1.0-4.8) k/uL Monocytes # (0-1.0) k/uL Eosinophils # (0-0.7) k/uL Basophils # (0-0.2) k/uL Macrocytosis Sodium (137-145) mmol/L Potassium (3.5-5.1) mmol/L Chloride (98-107) mmol/L Carbon Dioxide (22-30) mmol/L Anion Gap mmol/L BUN (9-20) mg/dL Creatinine (0.66-1.25) mg/dL Est GFR (CKD-EPI)AfAm (>60 ml/min/1.73 sqM) Est GFR (CKD-EPI)NonAf (>60 ml/min/1.73 sqM) Glucose (74-99) mg/dL Lactic Ac Sepsis Rflx Y Plasma Lactic Acid Bill 2.1 H* (0.7-2.0) mmol/L Calcium (8.4-10.2) mg/dL Total Bilirubin (0.2-1.3) mg/dL AST (17-59) U/L ALT (4-49) U/L Alkaline Phosphatase (38-126) U/L Total Protein (6.3-8.2) g/dL Albumin (3.5-5.0) g/dL Amylase (30-110) U/L Lipase (23-300) U/L Urine Color Urine Appearance (Clear) Urine pH (5.0-8.0) Ur Specific [place] (1.001-1.035) Urine Protein (Negative) Urine Glucose (UA) (Negative) Urine Ketones (Negative) Urine Blood (Negative) Urine Nitrite (Negative) Urine Bilirubin (Negative) Urine Urobilinogen (<2.0) mg/dL Ur Leukocyte Esterase (Negative) Valproic Acid ug/mL Disposition Clinical Impression: Constipation Disposition: HOME SELF-CARE Condition: Good Instructions (If sedation given, give patient instructions): Constipation (ED) Additional Instructions: Drink the magnesium citrate in single dose or in divided doses throughout the day to achieve bowel movement. Increase fiber in your diet and fluid intake. Follow up with your primary care doctor this week. Return to the emergency room with any new or concerning symptoms. Prescriptions: Magnesium Citrate [Citrate of Magnesia] 0 ml PO ONCE #296 ml Is patient prescribed a controlled substance at d/c from ED?: No Referrals: Moustapha Madrid DO [Primary Care Provider] - 1-2 days Time of Disposition: 15:25
--- NOTE | 2022-05-03 11:12 | XR ---
EXAMINATION TYPE: XR KUB DATE OF EXAM: 05/03/2022 COMPARISON: CT abdomen and pelvis 12/27/2019 HISTORY: Abdominal pain TECHNIQUE: Single supine KUB view of the abdomen is obtained to radiographs. FINDINGS: Small bowel demonstrates no evidence for dilatation or air fluid levels. Moderate colonic stool burden with mild gaseous distention of the colon in the right upper quadrant. No convincing evidence for pneumoperitoneum. Pelvic phleboliths. The lung bases are clear. The osseous structures are intact. IMPRESSION: Moderate colonic stool burden with mild gaseous distention of the colon in the right upper quadrant.
[2022-05-03 11:42] LABS: ALT 17 U/L (4-49); AST 31 U/L (17-59); African American GFR (CKD) >90 (>60 ml/min/1.73 sqM); Albumin 3.4 g/dL (3.5-5.0); Alkaline Phosphatase 83 U/L (38-126); Amylase 50 U/L (30-110); Anion Gap 12 mmol/L; Blood Urea Nitrogen 18 mg/dL (9-20); Calcium 8.5 mg/dL (8.4-10.2); Carbon Dioxide 23 mmol/L (22-30); Chloride 106 mmol/L (98-107); Glucose 99 mg/dL (74-99); Lipase 76 U/L (23-300); Non-African American GFR(CKD) >90 (>60 ml/min/1.73 sqM); Potassium 4.5 mmol/L (3.5-5.1); Sodium 141 mmol/L (137-145); Total Bilirubin 0.3 mg/dL (0.2-1.3)
[2022-05-03 11:47] LABS: Valproic Acid (Depakene) 60.4 ug/mL
[2022-05-03 11:51] LABS: Basophils # (A) 0.1 k/uL (0-0.2); Basophils % (A) 1 %; Eosinophils # (A) 0.1 k/uL (0-0.7); Eosinophils % (A) 2 %; HCT 43.9 % (39.0-53.0); HGB 14.3 gm/dL (13.0-17.5); Lymphocytes # (A) 1.5 k/uL (1.0-4.8); Lymphocytes % (A) 25 %; MCH 33.3 pg (25.0-35.0); MCHC 32.5 g/dL (31.0-37.0); MCV 102.3 fL (80.0-100.0); Macrocytosis Slight; Mean Platelet Volume 10.3; Monocytes # (A) 0.5 k/uL (0-1.0); Monocytes % (A) 9 %; Neutrophils # (A) 3.6 k/uL (1.3-7.7); Neutrophils % (A) 60 %; Platelet Count 264 k/uL (150-450); RBC 4.29 m/uL (4.30-5.90); RDW 15.4 % (11.5-15.5)
[2022-05-03 12:28] LABS: Appearance,Urine Clear (Clear); Bilirubin,Urine Negative (Negative); Blood,Urine Negative (Negative); Color,Urine Yellow; Glucose,Urine (UA) Negative (Negative); Ketones,Urine Trace (Negative); Leukocyte Esterase,Urine Negative (Negative); Nitrite,Urine Negative (Negative); PH, Urine 6.5 (5.0-8.0); Protein,Urine Trace (Negative); Specific Gravity,Urine 1.023 (1.001-1.035); Urobilinogen,Urine <2.0 mg/dL (<2.0)
[2022-05-03] MEDS ORDERED: MAGNESIUM CITRATE 296 ML BOTTLE PO ONE (15:21)
== END 2022-05-03 15:54 | disposition home or self-care (01) ==
LOC: EC 10:24
DX: K59.00 Constipation, unspecified (principal); E07.9 Disorder of thyroid, unspecified; Z88.2 Allergy status to sulfonamides; Z91.040 Latex allergy status; Z88.6 Allergy status to analgesic agent; Z79.890 Hormone replacement therapy; Z79.899 Other long term (current) drug therapy
CPT/HCPCS: 36415; 74018; 80053; 80164; 81003; 82150; 83605; 83690; 85025; 96360; 99284

== ENCOUNTER 2022-05-25 08:44 | Emergency (ER) | payer MEDICARE, OTHER ==
[2022-05-25] MEDS ORDERED: SODIUM CHLORIDE 0.9% 500 ML 500 ML IV STA (09:15)
--- NOTE | 2022-05-25 10:01 | XR ---
EXAMINATION TYPE: XR KUB DATE OF EXAM: 05/25/2022 COMPARISON: 05/03/2022 INDICATION: Abdomen pain TECHNIQUE: Single view abdomen supine view FINDINGS: Abundant colonic bowel gas is present. Some fecal debris is present. Mass effect is not evident. Psoas margins are normal. No organomegaly is present. IMPRESSION: 1. Abundant colonic bowel gas with slightly diminished fecal load comparison
[2022-05-25 10:53] LABS: Basophils # (A) 0.1 k/uL (0-0.2); Basophils % (A) 1 %; Eosinophils # (A) 0.1 k/uL (0-0.7); Eosinophils % (A) 1 %; HCT 42.8 % (39.0-53.0); HGB 14.3 gm/dL (13.0-17.5); Lymphocytes # (A) 1.8 k/uL (1.0-4.8); Lymphocytes % (A) 23 %; MCH 34.4 pg (25.0-35.0); MCHC 33.5 g/dL (31.0-37.0); MCV 102.8 fL (80.0-100.0); Macrocytosis Moderate; Mean Platelet Volume 10.9; Monocytes # (A) 0.9 k/uL (0-1.0); Monocytes % (A) 11 %; Neutrophils # (A) 4.8 k/uL (1.3-7.7); Neutrophils % (A) 61 %; Platelet Count 185 k/uL (150-450); RBC 4.16 m/uL (4.30-5.90); RDW 15.7 % (11.5-15.5); WBC 7.8 k/uL (3.8-10.6)
[2022-05-25 11:13] LABS: ALT 15 U/L (4-49); African American GFR (CKD) >90 (>60 ml/min/1.73 sqM); Albumin 3.3 g/dL (3.5-5.0); Amylase 55 U/L (30-110); Anion Gap 10 mmol/L; Blood Urea Nitrogen 15 mg/dL (9-20); Calcium 8.3 mg/dL (8.4-10.2); Carbon Dioxide 26 mmol/L (22-30); Chloride 103 mmol/L (98-107); Glucose 79 mg/dL (74-99); Lipase 96 U/L (23-300); Non-African American GFR(CKD) >90 (>60 ml/min/1.73 sqM); Sodium 139 mmol/L (137-145); Total Bilirubin 0.7 mg/dL (0.2-1.3); Total Protein 9.1 g/dL (6.3-8.2)
[2022-05-25 11:24] LABS: AST 34 U/L (17-59); Alkaline Phosphatase 77 U/L (38-126); Potassium 5.3 mmol/L (3.5-5.1)
--- NOTE | 2022-05-25 11:51 | ED ---
GI Bleed HPI - General Chief complaint: GI Bleed Stated complaint: poss seizure, blood in stool Time Seen by Provider: 05/25/22 08:54 Source: patient, RN notes reviewed, Caregiver Mode of arrival: wheelchair Limitations: no limitations - History of Present Illness Initial comments: 52-year-old male presents emergency Department chief complaint of rectal bleeding. Patient plays been having some issues about once which is been constipated for. Patient was placed on Colace and caregiver states that his been having increasing stool output but he is straining last night in which he seems to pass out but immediately return. Patient had some blood on the stool and when they wiped. Patient denies any complaints of abdominal pain no fevers or chills denies any blood thinners no dysuria no other complaints. - Related Data Home Medications Medication Instructions Recorded Confirmed Fluticasone Nasal [place] [Flonase 2 spray EA NOSTRIL DAILY PRN 07/05/18 05/25/22 Nasal [place]] Hydrocortisone Oint 1 applic TOPICAL Q2D PRN 07/05/18 05/25/22 [Hydrocortisone 2.5% Oint] Loratadine 10 mg PO DAILY@0800 PRN 07/05/18 05/25/22 Triamcinolone 0.1% Ointment 1 applic TOPICAL DAILY 07/05/18 05/25/22 [Kenalog 0.1% Ointment] Divalproex ER [Depakote ER] 1,000 mg PO HS@1930 05/03/22 05/25/22 Levothyroxine Sodium [Synthroid] 100 mcg PO DAILY@0730 05/03/22 05/25/22 Potassium Chloride [Klor-Con M20] 20 meq PO DAILY@0730 05/03/22 05/25/22 clonazePAM [KlonoPIN] 0.5 mg PO BID PRN 05/03/22 05/25/22 polyethylene glycoL 3350 [Miralax] 17 gm PO DAILY PRN 05/03/22 05/25/22 Docusate [Colace] 100 mg PO HS@1930 05/25/22 05/25/22 Previous Rx's Medication Instructions Recorded Hydrocortisone/Pramoxine 1 applic RECTAL BID #10 gm 05/25/22 [Proctofoam-Hc 1%-1% Foam] Allergies Allergy/AdvReac Type Severity Reaction Status Date / Time furosemide [From Lasix] Allergy Unknown Verified 05/25/22 11:17 latex Allergy Unknown Verified 05/25/22 11:17 memantine [From Namenda] Allergy Unknown Verified 05/25/22 11:17 Review of Systems ROS Statement: Those systems with pertinent positive or pertinent negative responses have been documented in the HPI. ROS Other: All systems not noted in ROS Statement are negative. Past Medical History Past Medical History: Thyroid Disorder Additional Past Medical History / Comment(s): developmental disability, ocd, dementia, downs syndrome History of Any Multi-Drug Resistant Organisms: None Reported Past Surgical History: No Surgical Hx Reported Additional Past Surgical History / Comment(s): tooth extraction Past Anesthesia/Blood Transfusion Reactions: No Reported Reaction Past Psychological History: Schizophrenia Smoking Status: Never smoker Past Alcohol Use History: None Reported Past Drug Use History: None Reported - Past Family History Mother Family Medical History: Unable to Obtain General Exam Limitations: no limitations General appearance: alert, in no apparent distress Head exam: Present: atraumatic, normocephalic, normal inspection Eye exam: Present: normal appearance, PERRL, EOMI. Absent: scleral icterus, conjunctival injection, periorbital swelling ENT exam: Present: normal exam, normal oropharynx, mucous membranes moist Neck exam: Present: normal inspection, full ROM. Absent: tenderness, meningismus, lymphadenopathy Respiratory exam: Present: normal lung sounds bilaterally. Absent: respiratory distress, wheezes, rales, rhonchi, stridor Cardiovascular Exam: Present: regular rate, normal rhythm, normal heart sounds. Absent: systolic murmur, diastolic murmur, rubs, gallop, clicks GI/Abdominal exam: Present: soft, normal bowel sounds. Absent: distended, tenderness, guarding, rebound, rigid Rectal exam: Present: hemorrhoids Course Vital Signs 05/25/22 08:47 Temperature 97.1 F L Pulse Rate 95 Respiratory 18 Rate Blood Pressure 107/73 O2 Sat by Pulse 98 Oximetry Medical Decision Making - Medical Decision Making 52-year-old presented for Rectal Bleeding Patient Has Hemorrhage on Exam More Concern for Internal Hemorrhoids X-Ray Shows Decrease Fecal Pattern Compared to Prior, Increase Gas Noted Patient We Discharged in Stable Condition Return Parameters Were Discussed. - Lab Data Result diagrams: 05/25/22 10:09 05/25/22 10:49 Lab Results 10/26/22 10/26/22 Range/Units 10:09 10:49 WBC 7.8 (3.8-10.6) k/uL RBC 4.16 L (4.30-5.90) m/uL Hgb 14.3 (13.0-17.5) gm/dL Hct 42.8 (39.0-53.0) % MCV 102.8 H (80.0-100.0) fL MCH 34.4 (25.0-35.0) pg MCHC 33.5 (31.0-37.0) g/dL RDW 15.7 H (11.5-15.5) % Plt Count 185 (150-450) k/uL MPV 10.9 Neutrophils % 61 % Lymphocytes % 23 % Monocytes % 11 % Eosinophils % 1 % Basophils % 1 % Neutrophils # 4.8 (1.3-7.7) k/uL Lymphocytes # 1.8 (1.0-4.8) k/uL Monocytes # 0.9 (0-1.0) k/uL Eosinophils # 0.1 (0-0.7) k/uL Basophils # 0.1 (0-0.2) k/uL Macrocytosis Moderate Sodium 139 (137-145) mmol/L Potassium 5.3 H (3.5-5.1) mmol/L Chloride 103 (98-107) mmol/L Carbon Dioxide 26 (22-30) mmol/L Anion Gap 10 mmol/L BUN 15 (9-20) mg/dL Creatinine 0.76 (0.66-1.25) mg/dL Est GFR (CKD-EPI)AfAm >90 (>60 ml/min/1.73 sqM) Est GFR (CKD-EPI)NonAf >90 (>60 ml/min/1.73 sqM) Glucose 79 (74-99) mg/dL Calcium 8.3 L (8.4-10.2) mg/dL Total Bilirubin 0.7 (0.2-1.3) mg/dL AST 34 (17-59) U/L ALT 15 (4-49) U/L Alkaline Phosphatase 77 (38-126) U/L Total Protein 9.1 H (6.3-8.2) g/dL Albumin 3.3 L (3.5-5.0) g/dL Amylase 55 (30-110) U/L Lipase 96 (23-300) U/L Disposition Clinical Impression: Hemorrhoids Disposition: HOME SELF-CARE Condition: Stable Instructions (If sedation given, give patient instructions): Hemorrhoids (ED) Additional Instructions: Please return to the Emergency Department if symptoms worsen or any other concerns. Prescriptions: Hydrocortisone/Pramoxine [Proctofoam-Hc 1%-1% Foam] 1 applic RECTAL BID #10 gm Is patient prescribed a controlled substance at d/c from ED?: No Referrals: Moustapha Madrid DO [Primary Care Provider] - 1-2 days Time of Disposition: 11:21
[2022-05-25 12:25] VITALS: BP 113/71; PULSE 85; RESP 16; TEMP 97.8
== END 2022-05-25 12:36 | disposition home or self-care (01) ==
LOC: EC 08:44
DX: K64.9 Unspecified hemorrhoids (principal); E07.9 Disorder of thyroid, unspecified; Z88.2 Allergy status to sulfonamides; Z91.040 Latex allergy status; Z88.6 Allergy status to analgesic agent
CPT/HCPCS: 36415; 74018; 80053; 82150; 83690; 85025; 96360; 99285

== ENCOUNTER → 2022-06-09 | Outpatient (CLI) | payer MEDICARE, OTHER ==
[2022-06-09 21:04] LABS: Valproic Acid (Depakene) 55.3 ug/mL (50.0-100.0)
== END | disposition home or self-care (01) ==
LOC: LABWHC1 10:16
PROVIDERS: ATTEND Physician Assistant
DX: K05.6 Periodontal disease, unspecified (principal); Z79.899 Other long term (current) drug therapy
CPT/HCPCS: 36415; 80164; 84443; 84481

== ENCOUNTER 2022-06-29 07:12 | Day surgery (SDC) | payer MEDICARE, OTHER ==
[2022-06-24 11:31] VITALS: BMI 25.4
[2022-06-29] MEDS ORDERED: LACTATED RINGERS 1,000 ML IV SCH (07:23)
[2022-06-29] MEDS ORDERED: LIDOCAINE 1% (10MG/ML) FOR IV START INTRADERMA PRN (07:23)
[2022-06-29] MEDS ORDERED: MIDAZOLAM ORAL SYRUP 10 MG/5 ML CUP PO ONE (07:30)
[2022-06-29 07:34] VITALS: RESP 18; TEMP 97.6
--- NOTE | 2022-06-29 07:40 | P.GSHP ---
History of Present Illness H&P Date: 06/29/22 CHIEF COMPLAINT: Colon screen HISTORY OF PRESENT ILLNESS: The patient is a 52-year-old male who presents for colon screen. Lower endoscopy was offered for further evaluation and management. PAST MEDICAL HISTORY: Please see list. PAST SURGICAL HISTORY: Please see list. MEDICATIONS: Please see list. ALLERGIES: Please see list. SOCIAL HISTORY: No illicit drug use FAMILY HISTORY: No reports of Crohn disease or ulcerative colitis. REVIEW OF ORGAN SYSTEMS: CONSTITUTIONAL: No reports of fevers or chills. PHYSICAL EXAM: VITAL SIGNS: Stable GENERAL: Well-developed pleasant in no acute distress. HEENT: No scleral icterus. Extraocular movements grossly intact. Moist buccal mucosa. NECK: Supple without lymphadenopathy. CHEST: Unlabored respirations. Equal bilateral excursions. CARDIOVASCULAR: Regular rate and rhythm. Distal 2+ pulses. ABDOMEN: Soft, nontender, nondistended. MUSCULOSKELETAL: No clubbing, cyanosis, or edema. ASSESSMENT: 1. Colon screen. PLAN: 1. Recommend proceeding with a lower endoscopy Past Medical History Past Medical History: Dementia, Syncope, Thyroid Disorder Additional Past Medical History / Comment(s): Developmental disability, OCD, social/behavioral issues, Down's Syndrome, very dry skin, limited mobility - in wheelchair, can stand and walk few steps and can self transfer with assistance. History of Any Multi-Drug Resistant Organisms: None Reported Past Surgical History: No Surgical Hx Reported Additional Past Surgical History / Comment(s): Tooth extraction, all teeth extracted one week ago. Past Anesthesia/Blood Transfusion Reactions: No Reported Reaction Additional Psychological History / Comment(s): Developmental disability, OCDdown syndrome, social/behavioral issues. Smoking Status: Never smoker Past Alcohol Use History: None Reported Past Drug Use History: None Reported - Past Family History Mother Family Medical History: No Reported History Sister(s) Family Medical History: Cancer Additional Family Medical History / Comment(s): Breast cancer. Medications and Allergies Home Medications Medication Instructions Recorded Confirmed Type Divalproex ER [Depakote ER] 1,000 mg PO HS 05/03/22 06/29/22 History Levothyroxine Sodium [Synthroid] 100 mcg PO QAM 05/03/22 06/29/22 History Potassium Chloride [Klor-Con M20] 20 meq PO QAM 05/03/22 06/29/22 History polyethylene glycoL 3350 [Miralax] 17 gm PO Q72H PRN 05/03/22 06/29/22 History Chlorhexidine Gluconate [Peridex] 15 ml PO BID 06/24/22 06/29/22 History Cholecalciferol [Vitamin D3 (10 30 mcg PO QAM 06/24/22 06/29/22 History Mcg = 400 Iu)] Docusate Sodium [Dok] 100 mg PO HS 06/24/22 06/29/22 History Hydrocortisone Cream 1 applic TOPICAL BID 06/24/22 06/29/22 History [Hydrocortisone 2.5% Cream] Ketoconazole 2% Shampoo [Nizoral] 1 applic TOPICAL HS 06/24/22 06/29/22 History Magnesium Hydroxide [Milk of 30 ml PO Q5D PRN 06/24/22 06/29/22 History Magnesia] Melatonin 5 mg PO HS 06/24/22 06/29/22 History Venlafaxine HCl [Effexor XR] 150 mg PO QAM 06/24/22 06/29/22 History Allergies Allergy/AdvReac Type Severity Reaction Status Date / Time furosemide [From Lasix] Allergy Unknown Verified 06/29/22 07:22 latex Allergy Unknown Verified 06/29/22 07:22 memantine [From Namenda] Allergy Unknown Verified 06/29/22 07:22 Surgical - Exam Vital Signs Temp Pulse Resp BP Pulse Ox 97.6 F 90 18 104/68 97 06/29/22 07:30 06/29/22 07:30 06/29/22 07:30 06/29/22 07:30 06/29/22 07:30
[2022-06-29] MEDS ORDERED: PROPOFOL 10 MG/ML 20 ML VIAL IV ONE (08:03)
--- NOTE | 2022-06-29 09:09 | P.PCN ---
Date of Procedure: 06/29/22 Description of Procedure: PREOPERATIVE DIAGNOSIS: Change in bowel habits Cognitive delay Chronic constipation Autism Down syndrome POSTOPERATIVE DIAGNOSIS: Change in bowel habits Cognitive delay Chronic constipation Autism Down syndrome Sigmoid volvulus OPERATION: Colonoscopy to the ascending colon SURGEON: Karen Mathews MD. ANESTHESIA: MAC. INDICATIONS: The patient is a 52-year-old male with cognitive delay who presents with change in bowel habits. Benefits and risks described and informed consent was obtained by legal guardian. DESCRIPTION OF PROCEDURE: The patient had undergone Miralax prep. The patient had been brought into the operating room and laid in the left lateral decubitus position. After adequate intravenous sedation, the rectum was examined with 2% lidocaine jelly. No external hemorrhoids were encountered. The rectal tone was within normal limits. No lesions were palpated in the rectal vault. The prep was fair. An Olympus colonoscope was advanced to the ascending colon requiring abdominal wall pressure. Tortuosity of the sigmoid colon was identified consistent with possible sigmoid volvulus. No large colonic polyps were found through the sigmoid colon and transverse colon. No evidence of focal colitis was found. Retroflexion of the scope demonstrated grade 2 internal hemorrhoids without active bleeding or inflammation. The colon was desufflated. The patient had tolerated the procedure well. Withdrawal time was over 6 minutes. FINDINGS: Aronchick preparation quality scale 3+ (1-5) Scope advanced to the ascending colon with abdominal pressure. Internal hemorrhoids, grade 1 No external prolapsed hemorrhoids. No arteriovenous malformations. No adenomatous polyps. No focal colitis. Sigmoid volvulus. RECOMMENDATIONS: Recommend barium enema due to tortuous sigmoid colon and possible sigmoid volvulus. Plan - Discharge Summary Discharge Rx Participant: No New Discharge Prescriptions: Continue Levothyroxine Sodium [Synthroid] 100 mcg PO QAM Divalproex ER [Depakote ER] 1,000 mg PO HS Hydrocortisone Cream [Hydrocortisone 2.5% Cream] 1 applic TOPICAL BID Melatonin 5 mg PO HS Cholecalciferol [Vitamin D3 (10 Mcg = 400 Iu)] 30 mcg PO QAM Venlafaxine HCl [Effexor XR] 150 mg PO QAM Magnesium Hydroxide [Milk of Magnesia] 30 ml PO Q5D PRN PRN Reason: Constipation polyethylene glycoL 3350 [Miralax] 17 gm PO Q72H PRN PRN Reason: Constipation Potassium Chloride [Klor-Con M20] 20 meq PO QAM Docusate Sodium [Dok] 100 mg PO HS Ketoconazole 2% Shampoo [Nizoral] 1 applic TOPICAL HS Chlorhexidine Gluconate [Peridex] 15 ml PO BID Discharge Medication List Divalproex ER [Depakote ER] 1,000 mg PO HS 05/03/22 [History] Levothyroxine Sodium [Synthroid] 100 mcg PO QAM 05/03/22 [History] Potassium Chloride [Klor-Con M20] 20 meq PO QAM 05/03/22 [History] polyethylene glycoL 3350 [Miralax] 17 gm PO Q72H PRN 05/03/22 [History] Chlorhexidine Gluconate [Peridex] 15 ml PO BID 06/24/22 [History] Cholecalciferol [Vitamin D3 (10 Mcg = 400 Iu)] 30 mcg PO QAM 06/24/22 [History] Docusate Sodium [Dok] 100 mg PO HS 06/24/22 [History] Hydrocortisone Cream [Hydrocortisone 2.5% Cream] 1 applic TOPICAL BID 06/24/22 [History] Ketoconazole 2% Shampoo [Nizoral] 1 applic TOPICAL HS 06/24/22 [History] Magnesium Hydroxide [Milk of Magnesia] 30 ml PO Q5D PRN 06/24/22 [History] Melatonin 5 mg PO HS 06/24/22 [History] Venlafaxine HCl [Effexor XR] 150 mg PO QAM 06/24/22 [History] Follow up Appointment(s)/Referral(s): Karen Mathews MD [STAFF PHYSICIAN] - 07/05/22 Patient Instructions/Handouts: Barium Enema (ED), Constipation (DC) Discharge Disposition: HOME SELF-CARE
[2022-06-29 10:10] VITALS: PULSE 70
[2022-06-29 10:26] VITALS: BP 127/77
== END 2022-06-29 11:57 | disposition home or self-care (01) ==
LOC: ORWHC2ENDO 07:12
PROVIDERS: ATTEND Surgery Plastic and Reconstructive Surgery
DX: K56.2 Volvulus (principal); K64.0 First degree hemorrhoids; K59.09 Other constipation; F84.0 Autistic disorder; Q90.9 Down syndrome, unspecified; R55 Syncope and collapse; E07.9 Disorder of thyroid, unspecified; F03.90 Unspecified dementia, unspecified severity, without behavioral disturbance, psychotic disturbance, mood disturbance, and anxiety; Z80.3 Family history of malignant neoplasm of breast; Z79.899 Other long term (current) drug therapy; Z79.890 Hormone replacement therapy; Z88.8 Allergy status to other drugs, medicaments and biological substances; Z91.040 Latex allergy status
CPT/HCPCS: 45378; J2704